=== PATIENT | male | born 1960 | race Caucasian/White ===

== ENCOUNTER 2020-04-28 13:29 | Outpatient (REF) | payer MEDICAID, SELFPAY | END 2020-04-28 13:30 | disposition home or self-care (01) | LOC: HO.HAP 13:29 | PROVIDERS: Visit Provider Pediatrics Adolescent Medicine | DX: Z46.1 Encounter for fitting and adjustment of hearing aid (principal) | CPT/HCPCS: V5266 ==

== ENCOUNTER 2020-07-28 15:34 | Outpatient (REF) | payer MEDICAID, SELFPAY | END 2020-07-28 15:35 | disposition home or self-care (01) | LOC: HO.HAP 15:34 | PROVIDERS: Visit Provider Nurse Practitioner Family | DX: Z46.1 Encounter for fitting and adjustment of hearing aid (principal) | CPT/HCPCS: V5266 ==

== ENCOUNTER 2020-10-21 11:00 | Outpatient (REF) | payer MEDICAID, SELFPAY | END 2020-10-21 11:01 | disposition home or self-care (01) | LOC: HO.HAP 11:00 | PROVIDERS: Visit Provider Nurse Practitioner Family | DX: Z46.1 Encounter for fitting and adjustment of hearing aid (principal); H90.3 Sensorineural hearing loss, bilateral | CPT/HCPCS: V5266 ==

== ENCOUNTER 2021-02-08 13:55 | Outpatient (REF) | payer MEDICAID, SELFPAY ==
--- NOTE | 2021-02-08 16:07 | MHC.AU.AHA ---
Adult Audiological Evaluation Date of Visit: 02/08/21 Reason for Appointment: Audiological evaluation to monitor the status of Mr. Garcia's hearing loss. He has a know bilateral sensorineural hearing loss and uses hearing aids binaurally. He notes that his last hearing evaluation was at [facility] ([facility] in [place] in 2019, and at that time he was told the hearing and speech understanding in his right ear has decreased. He has a history of chronic middle-ear fluid and currently has a PE tube in the right ear. Mr. Garcia notes that he doesn't hear well from the right ear even with his hearing aid. He is interested in pursuing new hearing aids. Mr. Garcia denies any changes to his medical history since his last visit. Previous Hearing Test Results: Reports that he has an audiological evaluation at [facility] in 2019, but did not have records with him today. [facility], 06/14/2018 - Moderately severe to severe sensorineural hearing loss bilaterally. Ear History: Previous Ear Surgery: Myringotomy and PE tube in right ear 2017 & 2019 Bothersome Tinnitus/Ringing/Noises in Ears: Both Ears Medical History: Medical History: Diabetes, Heart Problems, High Blood Pressure Medication List: Magnesium 400 mg, Melatonin 3 mg PRN, NovoLOG flex Pen 100 unit/mL 4-7 units 3x daily, Lantus SoloStar 100 unit solution 11 units daily, Vitamin E, Vitamin D, Metoprolol tartrate 50 mg twice daily, Amlodipine besylate 5 mg daily, Atorvastatin calcium 10 mg daily Hearing Instrument History- Right Ear: Cupola Charger Insulation: ReSFoodfly Model: Carlos Q 7 88 High Power EpiEP Serial Number: [id number] Battery Size: 13 Repair Warranty: 04/09/2018 Dispensed By: [employer] Date of Fitting: Per [employer], purchased 03/11/2016 Hearing Instrument History- Left Ear: Cupola Charger Insulation: ReSFoodfly Model: Carlos Q 7 88 High Power EpiEP Serial Number: [id number] Battery Size: 13 Warranty: 04/09/2018 Dispensed By: [employer] Date of Fitting: Per [employer], purchased 03/11/2016 Otoscopy: Right Ear: Clear canal, PE tube visualized, appears to be falling out of TM Left Ear: Unremarkable Tympanometry: Tympanometry performed due to: History of middle ear dysfunction Right Ear: Could Not Obtain Seal Left Ear: Negative Middle Ear Pressure (Type C) Hearing Evaluation: Transducer(s) Used: Insert Earphones, Bone Conduction Method: Conventional Audiometry Stimuli Used: Pure Tones Right Ear: Description of Hearing: Severe to profound hearing loss from 250-8000 Hz, likely mixed in nature, though cannot determine due to output limits of the bone conductor. Left Ear: Description of Hearing: Moderately severe to severe hearing loss from 250-6000 Hz, and a profound loss at 8000 Hz. Speech Recognition Threshold (SRT): Method Used: Monitored Live Voice Stimuli Used: Spondee Words Right Ear: 90 dBHL Left Ear: 70 dBHL Word Discrimination: Method: Recorded Lists Word Lists Used: NU-6 Right Ear: 20% at 100 dBHL Left Ear: 60% at 95 dBHL, 56% at 100 dBHL Comparison: Compared to most recent evaluation: Compared to audiogram from 2019, 10-30+ dBHL decrease in thresholds in the right ear from 125-1500 and 4000 Hz. Significant decreased in speech discrimination scores in the right ear, from a score of 60% at 110 dBHL in 2019, to 20% at 100 dBHL at today's test. Hearing in the left ear is stable. Recommendations: Audiological re-evaluation in one year. Mr. Reilly hearing aids are almost five years old, and they are no longer providing enough benefit given the decrease in hearing over the years. Discussed hearing aid options with Mr. Garcia. Recommend super power BTE hearing aids. Will contact Mr. Arts health insurance to determine eligibility for new hearing aids. Mr. Garcia may also benefit from following up with his ENT physician regarding the status of the PE tube in his right ear. Diagnosis: Primary Diagnosis: H90.3 Bilateral Sensorineural Hearing Loss Services Performed: Comprehensive Audiological Evaluation (CPT 72218) Tympanometry (CPT 64411) Signature: Provider: Uriel Crespo, [facility]
--- NOTE | 2021-02-08 16:08 | MHC.AU.HAS ---
Hearing Aid Evaluation Date of Visit: 02/08/21 Historical Information: Description of Hearing: Right ear- Severe to profound mixed hearing loss. Left ear- Moderately severe to severe sensorineural hearing loss. Current personal amplification information, if applicable: 2016 Oticon Nera 2 Pro PP 12 105 Summary: Mr. Garcia feels he is not getting adequate benefit from his current hearing aids. They are nearly 5 years old and Mr. Garcia would likely benefit from updated technology with a more powerful pair of hearing aids. Discussed options. He was unhappy with his most recent set of Oticon hearing aids, and has felt like his 2012 pair worked better. Recommended that we try changing to a different paper sorter and counter. He is interested in trying the GN ReSound Carlos Q 7 88 High Power BTE. Hearing Aid Prescription: Based on the individual?s shared listening needs, communication environments, dexterity, desire for connectivity, and personal preferences, the following prescription for amplification has been made: Right ear: Jewelry Maker: ReSound Model: Carlos Q 7 88 High Power BTE Battery Size: 13 Color: Light Blonde Type of Mold: Microsonic earmolds Left ear: Left ear prescription to be same as Right Hearing Aid above: Jewelry Maker: ReSound Model: Carlos Q 7 88 High Power BTE Battery Size: 13 Color: Light Blonde Type of Mold: Microsonic earmolds Plan of Care: Earmold Impressions Taken. Medical Clearance to be requested from PCP/ENT. Contacting his insurance to find out if he is eligible for new aids. Primary Diagnosis: H90.3 Bilateral Sensorineural Hearing Loss Signature: Provider: Uriel Crespo, CCC-A
--- NOTE | 2021-02-08 16:12 | MHC.AU.MED ---
Medical Clearance for Hearing Instrumentation Date: 02/08/21 Patient Name: Juan Garcia Date of : 1960 Primary Care Provider: Referring Provider: Karolina Rivas NP We have seen your patient on 02/08/21 and have determined that they are a candidate for amplification (See accompanying report). Specifically, they would benefit from: Hearing aid use in both ears There is a statute that addresses Medical Evaluation Requirements prior to fitting a patient with a hearing aid. According to [place] statute 265 CMR:6.03(1), (a) General. Except as provided in 265 CMR 6.03(1)(b), a study abroad coordinator shall not sell a hearing aid unless the prospective user has presented to the study abroad coordinator a written statement signed by a licensed physician that states that the patient's hearing loss has been medically evaluated and the patient may be considered a candidate for a hearing aid. The medical evaluation must have taken place within the preceding six months. Please note: Due to the [place] Statute referenced above, we cannot accept a signature other than that of a licensed physician. REAL ESTATE INSPECTOR and PA signatures cannot be accepted. I am in agreement with the above recommendation. There is no medical contraindication for hearing instrumentation. Physician Signature Date Physician Name (Printed)
--- NOTE | 2021-02-08 16:16 | MHC.AU.AHA ---
Adult Audiological Evaluation Date of Visit: 02/08/21 Reason for Appointment: Audiological evaluation to monitor the status of Mr. Garcia's hearing loss. He has a know bilateral sensorineural hearing loss and uses hearing aids binaurally. He notes that his last hearing evaluation was at [facility] ([facility] in [place] in 2019, and at that time he was told the hearing and speech understanding in his right ear has decreased. He has a history of chronic middle-ear fluid and currently has a PE tube in the right ear. Mr. Garcia notes that he doesn't hear well from the right ear even with his hearing aid. He is interested in pursuing new hearing aids. Mr. Garcia denies any changes to his medical history since his last visit. Previous Hearing Test Results: Reports that he has an audiological evaluation at [facility] in 2019, but did not have records with him today. [facility] 06[place]2018 - Moderately severe to severe sensorineural hearing loss bilaterally. Ear History: Previous Ear Surgery: Myringotomy and PE tube in right ear 2017 & 2019 Bothersome Tinnitus/Ringing/Noises in Ears: Both Ears Medical History: Medical History: Diabetes, Heart Problems, High Blood Pressure Medication List: Magnesium 400 mg, Melatonin 3 mg PRN, NovoLOG flex Pen 100 unit/mL 4-7 units 3x daily, Lantus SoloStar 100 unit solution 11 units daily, Vitamin E, Vitamin D, Metoprolol tartrate 50 mg twice daily, Amlodipine besylate 5 mg daily, Atorvastatin calcium 10 mg daily Hearing Instrument History- Right Ear: Honey Extractor: Ot[employer]ex[employer] Model: Nera 2 Pro PP 13 105 Serial Number: [id number] Battery Size: 13 Repair Warranty: 04/09/2018 Dispensed By: [employer] Date of Fitting: Per [employer] 03/10/2016 Hearing Instrument History- Left Ear: Honey Extractor: OtNexamp Model: Nera 2 Pro PP 13 105 Serial Number: [id number] Battery Size: 13 Warranty: 04/09/2018 Dispensed By: [employer] Date of Fitting: Per [employer] 03/10/2016 Otoscopy: Right Ear: Clear canal, PE tube visualized, appears to be falling out of TM Left Ear: Unremarkable Tympanometry: Tympanometry performed due to: History of middle ear dysfunction Right Ear: Could Not Obtain Seal Left Ear: Negative Middle Ear Pressure (Type C) Hearing Evaluation: Transducer(s) Used: Insert Earphones, Bone Conduction Method: Conventional Audiometry Stimuli Used: Pure Tones Right Ear: Description of Hearing: Severe to profound hearing loss from 250-8000 Hz, likely mixed in nature, though cannot determine due to output limits of the bone conductor. Left Ear: Description of Hearing: Moderately severe to severe hearing loss from 250-6000 Hz, and a profound loss at 8000 Hz. Speech Recognition Threshold (SRT): Method Used: Monitored Live Voice Stimuli Used: Spondee Words Right Ear: 90 dBHL Left Ear: 70 dBHL Word Discrimination: Method: Recorded Lists Word Lists Used: NU-6 Right Ear: 20% at 100 dBHL Left Ear: 60% at 95 dBHL, 56% at 100 dBHL Comparison: Compared to most recent evaluation: Compared to audiogram from 2019, 10-30+ dBHL decrease in thresholds in the right ear from 125-1500 and 4000 Hz. Significant decreased in speech discrimination scores in the right ear, from a score of 60% at 110 dBHL in 2019, to 20% at 100 dBHL at today's test. Hearing in the left ear is stable. Recommendations: Audiological re-evaluation in one year. Mr. Reilly hearing aids are almost five years old, and they are no longer providing enough benefit given the decrease in hearing over the years. Discussed hearing aid options with Mr. Garcia. Recommend super power BTE hearing aids. Will contact Mr. Arts health insurance to determine eligibility for new hearing aids. Mr. Garcia may also benefit from following up with his ENT physician regarding the status of the PE tube in his right ear. Diagnosis: Primary Diagnosis: H90.3 Bilateral Sensorineural Hearing Loss Services Performed: Comprehensive Audiological Evaluation (CPT 96652) Tympanometry (CPT 92465) Signature: Provider: Uriel Crespo, [facility]
== END 2021-02-08 13:56 | disposition home or self-care (01) ==
LOC: HO.SH 13:55
PROVIDERS: Visit Provider Nurse Practitioner Family
DX: H90.3 Sensorineural hearing loss, bilateral (principal)
CPT/HCPCS: 92557; 92567; 92591; 92593; V5266; V5275

== ENCOUNTER 2021-03-24 14:27 | Outpatient (REF) | payer MEDICAID, SELFPAY | END 2021-03-24 14:28 | disposition home or self-care (01) | LOC: HO.HAP 14:27 | PROVIDERS: Visit Provider Internal Medicine | DX: Z46.1 Encounter for fitting and adjustment of hearing aid (principal); H90.3 Sensorineural hearing loss, bilateral | CPT/HCPCS: V5011; V5020; V5160; V5261; V5264; V5266 ==

== ENCOUNTER 2021-04-21 14:01 | Outpatient (REF) | payer MEDICAID, SELFPAY | END 2021-04-21 14:02 | disposition home or self-care (01) | LOC: HO.HAP 14:01 | PROVIDERS: Visit Provider Pediatrics Adolescent Medicine | DX: Z13.89 Encounter for screening for other disorder (principal) ==

== ENCOUNTER 2021-05-17 09:17 | Outpatient (REF) | payer MEDICAID, SELFPAY ==
--- NOTE | 2021-05-19 11:18 | MHC.AU.HFU ---
Hearing Instrument Follow-Up- Binaural Date of Visit: 05/17/21 Right Ear: Resident Care Director: ReSound Model: Carlos Q 7 HP BTE Serial Number: [id number] Repair Warranty: 04/01/2024 Loss and Damage Warranty: 04/01/2024 Battery Size: 13 Color: Light Blonde TubinT double bend Type of Mold: Half shell Microsonic earmold Dispensed By: [facility] Date of Fittin03/24/2021 Left Ear: Resident Care Director: ReSound Model: Carlos Q 7 HP BTE Serial Number: [id number] Repair Warranty: 04/01/2024 Loss and Damage Warranty: 04/01/2024 Battery Size: 13 Color: Light Blonde TubinT double bend Type of Mold: Half shell Microsonic earmold Dispensed By: [facility] Date of Fittin03/24/2021 Follow-Up Summary: Patient reports that the tone hooks are very loose. They have fallen off the hearing aids a few times while wearing them. He reports the sound of the hearing aids has been excellent, but he is afraid to wear the hearing aids in case they fall off again. Hearing aids were inspected. The metal hooks are very loose and cannot be manually tightened. Contacted audiology at [facility]- they will send alternative hooks, made of plastic. Patient also reports that the left mold is causing discomfort. A new impression was taken and will be sent to [employer] for remake. Recommendations: Recommendations: Patient will be contacted when the new hooks have arrived, and when the mold has arrived (as the mold will likely take longer to come in than the hooks). Diagnosis Code(s): Primary Diagnosis: H90.3 Bilateral Sensorineural Hearing Loss Signature: Provider: Uriel Lacy, CCC-A
--- NOTE | 2021-05-19 11:29 | MHC.AU.HFU ---
Hearing Instrument Follow-Up- Binaural Date of Visit: 05/17/21 Right Ear: High School Band Teacher: ReSound Model: Carlos Q 7 HP BTE Serial Number: [id number] Repair Warranty: 04/01/2024 Loss and Damage Warranty: 04/01/2024 Left Ear: High School Band Teacher: ReSound Model: Carlos Q 7 HP BTE Serial Number: [id number] Repair Warranty: 04/01/2024 Loss and Damage Warranty: 04/01/2024 Follow-Up Summary: Patient reports that the tone hooks are very loose. They have fallen off the hearing aids a few times while wearing them. He reports the sound of the hearing aids has been excellent, but he is afraid to wear the hearing aids in case they fall off again. Hearing aids were inspected. The metal hooks are very loose and cannot be manually tightened. Contacted audiology at [facility]- they will send alternative hooks, made of plastic. The hearing aids/molds will be kept in our office until the hooks arrive so we can make sure the hooks fit before giving them back to the patient. Patient has been using his old instruments/molds in the meantime. Patient also reports that the left mold is causing discomfort. A new impression was taken and will be sent to [employer] for remake. Recommendations: Recommendations: Patient will be contacted when the new hooks have arrived, and when the mold has arrived (as the mold will likely take longer to come in than the hooks). Diagnosis Code(s): Primary Diagnosis: H90.3 Bilateral Sensorineural Hearing Loss Signature: Provider: Uriel Lacy, [facility]
== END 2021-05-17 09:18 | disposition home or self-care (01) ==
LOC: HO.HAP 09:17
PROVIDERS: Visit Provider Nurse Practitioner Family
DX: Z46.1 Encounter for fitting and adjustment of hearing aid (principal); H90.3 Sensorineural hearing loss, bilateral
CPT/HCPCS: V5275

== ENCOUNTER 2021-05-21 11:11 | Outpatient (REF) | payer SELFPAY | END 2021-05-21 11:12 | disposition home or self-care (01) | LOC: HO.HAP 11:11 | PROVIDERS: PCP Nurse Practitioner Family; Visit Provider Nurse Practitioner Family | DX: Z13.89 Encounter for screening for other disorder (principal) ==

== ENCOUNTER 2021-07-30 12:41 | Outpatient (REF) | payer MEDICAID, SELFPAY ==
--- NOTE | 2021-07-30 14:20 | MHC.AU.HFU ---
Hearing Instrument Follow-Up- Binaural Date of Visit: 07/30/21 Right Ear: Strategic Marketing Leader: ReSound Model: Carlos Q 7 HP BTE Serial Number: [id number] Repair Warranty: 04/01/2024 Left Ear: Strategic Marketing Leader: ReSound Model: Carlos Q 7 HP BTE Serial Number: [id number] Repair Warranty: 04/01/2024 Follow-Up Summary: Juan was seen for an earmold product picker and hearing aid maintenance appointment. Juan was accompanied by his brother, Finn Garcia, at today's appointment. Juan sustained a cardiac event and an anoxic brain injury in early June. He is currently receiving rehabilitation services. Juan reports the left device seems quieter than before. Biologic listening check revealed the left device was weak. Replaced tubes and cleaned microphones bilaterally. Right device was in good working order. Left device still appeared to be weak. Discussed sending left hearing aid to fixing machine operator for repair, which patient agreed to. A Resound Carlos Q 9 loaner device (SN:[id number]) was programmed with Juan's most recent settings. Juan's new left earmold was fit to the loaner device. Patient stated the hearing aids sounded good. An instrument loan agreement was signed. Recommendations: Juan will be contacted once repaired hearing device arrives. Juan's brother requested we call him at [phone] if Juan could not be reached. Patient should call if any issues arise before then. Diagnosis Code(s): Primary Diagnosis: H90.3 Bilateral Sensorineural Hearing Loss Signature: Student/Clinical Fellow: Yes: Brittney Burrell B.A., Uriel Digital Marketing Specialist I have reviewed/agreed with student/fellow documentation: Yes Provider: Uriel Lacy, [facility]
== END 2021-07-30 12:42 | disposition home or self-care (01) ==
LOC: HO.HAP 12:41
PROVIDERS: Visit Provider Nurse Practitioner Family
DX: Z13.89 Encounter for screening for other disorder (principal)

== ENCOUNTER 2021-08-11 11:13 | Outpatient (REF) | payer MEDICAID, SELFPAY | END 2021-08-11 11:14 | disposition home or self-care (01) | LOC: HO.HAP 11:13 | PROVIDERS: Visit Provider Nurse Practitioner Family | DX: Z13.89 Encounter for screening for other disorder (principal) ==

== ENCOUNTER 2022-02-28 13:58 | Outpatient (REF) | payer MEDICAID, SELFPAY ==
--- NOTE | 2022-02-28 15:25 | MHC.AU.HFU ---
Hearing Instrument Follow-Up- Binaural Date of Visit: 02/28/22 Right Ear: ReSound Carlos Q7 ([id number]) SN: [id number] Color: Lt Blonde Repair Warranty: 04/01/2024 Loss and Damage Warranty: 04/01/2024 Battery Size: 13 Type of Mold: Microsonic M2000 half shell Dispensed By: [facility] Date of Fittin03/24/2021 Left Ear: ReSound Carlos Q7 ([id number]) SN: [id number] Color: Lt Blonde Repair Warranty: 04/01/2024 Loss and Damage Warranty: 04/01/2024 Battery Size: 13 Type of Mold: Microsonic M2000 half shell Type of Wax Guard: Dispensed By: [facility] Date of Fittin03/24/2021 Follow-Up Summary: Juan reported his right hearing aid is intermittent. Tubing was extremely hard with wax build up inside. Cleaned hearing aids and earmolds. Vacuumed microphones and replaced tubing. Replaced the right tone hook as it was slightly cracked. A listening check demonstrated that the hearing aids are in good working order. Juan noticed improvement in sound quality in office. Recommendations: Follow-up with primary care physician for wax removal of the left ear. Tubing change every six months. Diagnosis Code(s): Primary Diagnosis: H90.6 Mixed Hearing Loss, Bilateral Signature: Provider: Carol Muniz, [facility]
== END 2022-02-28 13:59 | disposition home or self-care (01) ==
LOC: HO.HAP 13:58
PROVIDERS: Visit Provider Nurse Practitioner Family
DX: Z13.89 Encounter for screening for other disorder (principal)

== ENCOUNTER 2022-04-26 14:14 | Outpatient (REF) | payer MEDICAID, SELFPAY | END 2022-04-26 14:15 | disposition home or self-care (01) | LOC: HO.SH 14:14 | PROVIDERS: Visit Provider Nurse Practitioner Family | DX: Z01.118 Encounter for examination of ears and hearing with other abnormal findings (principal); H90.3 Sensorineural hearing loss, bilateral; H61.23 Impacted cerumen, bilateral | CPT/HCPCS: 92593; 99499 ==

== ENCOUNTER 2022-05-13 07:56 | Outpatient (REF) | payer MEDICAID, SELFPAY | END 2022-05-13 07:57 | disposition home or self-care (01) | LOC: HO.SH 07:56 | PROVIDERS: Visit Provider Nurse Practitioner Family | DX: Z01.118 Encounter for examination of ears and hearing with other abnormal findings (principal); Z46.1 Encounter for fitting and adjustment of hearing aid; H90.6 Mixed conductive and sensorineural hearing loss, bilateral; H69.91 Unspecified Eustachian tube disorder, right ear | CPT/HCPCS: 92557; 92567; 92593; 99499; V5266 ==

== ENCOUNTER 2022-09-07 11:55 | Outpatient (REF) | payer MEDICAID, SELFPAY | END 2022-09-07 11:56 | disposition home or self-care (01) | LOC: HO.HAP 11:55 | PROVIDERS: Visit Provider Nurse Practitioner Family | DX: Z46.1 Encounter for fitting and adjustment of hearing aid (principal); H90.3 Sensorineural hearing loss, bilateral | CPT/HCPCS: V5266 ==

== ENCOUNTER 2022-12-12 13:58 | Outpatient (REF) | payer MEDICAID, SELFPAY | END 2022-12-12 13:59 | disposition home or self-care (01) | LOC: HO.HAP 13:58 | PROVIDERS: Visit Provider Nurse Practitioner Family | DX: Z46.1 Encounter for fitting and adjustment of hearing aid (principal); H90.6 Mixed conductive and sensorineural hearing loss, bilateral | CPT/HCPCS: V5266 ==

== ENCOUNTER 2023-01-03 12:11 | Outpatient (REF) | payer MEDICAID, SELFPAY | END 2023-01-03 12:12 | disposition home or self-care (01) | LOC: HO.HAP 12:11 | PROVIDERS: Visit Provider Nurse Practitioner Family | DX: Z46.1 Encounter for fitting and adjustment of hearing aid (principal); H90.3 Sensorineural hearing loss, bilateral | CPT/HCPCS: 92592 ==

== ENCOUNTER 2023-01-04 16:16 | Outpatient (REF) | payer MEDICAID, SELFPAY | END 2023-01-04 16:17 | disposition home or self-care (01) | LOC: HO.HAP 16:16 | PROVIDERS: Visit Provider Nurse Practitioner Family | DX: Z13.89 Encounter for screening for other disorder (principal) ==

== ENCOUNTER 2023-03-06 14:11 | Outpatient (REF) | payer MEDICAID, SELFPAY | END 2023-03-06 14:12 | disposition home or self-care (01) | LOC: HO.HAP 14:11 | PROVIDERS: Visit Provider Nurse Practitioner Family | DX: Z46.1 Encounter for fitting and adjustment of hearing aid (principal); H90.3 Sensorineural hearing loss, bilateral; H69.91 Unspecified Eustachian tube disorder, right ear | CPT/HCPCS: V5266 ==

== ENCOUNTER 2023-04-27 12:55 | Outpatient (REF) | payer MEDICAID, SELFPAY | END 2023-04-27 12:56 | disposition home or self-care (01) | LOC: HO.HAP 12:55 | PROVIDERS: Visit Provider Nurse Practitioner Family | DX: Z13.89 Encounter for screening for other disorder (principal) ==

== ENCOUNTER 2023-05-01 11:57 | Outpatient (REF) | payer MEDICAID, SELFPAY | END 2023-05-01 11:58 | disposition home or self-care (01) | LOC: HO.HAP 11:57 | PROVIDERS: Visit Provider Nurse Practitioner Family | DX: Z13.89 Encounter for screening for other disorder (principal) ==

== ENCOUNTER 2023-08-17 13:56 | Outpatient (REF) | payer MEDICAID, SELFPAY | END 2023-08-17 13:57 | disposition home or self-care (01) | LOC: HO.HAP 13:56 | PROVIDERS: Visit Provider Nurse Practitioner Family | DX: Z46.1 Encounter for fitting and adjustment of hearing aid (principal); H90.3 Sensorineural hearing loss, bilateral | CPT/HCPCS: V5266 ==

== ENCOUNTER 2024-01-03 12:07 | Outpatient (REF) | payer MEDICAID, SELFPAY | END 2024-01-03 12:08 | disposition home or self-care (01) | LOC: HO.HAP 12:07 | PROVIDERS: Visit Provider Nurse Practitioner Family | DX: Z46.1 Encounter for fitting and adjustment of hearing aid (principal); H90.3 Sensorineural hearing loss, bilateral; H69.91 Unspecified Eustachian tube disorder, right ear | CPT/HCPCS: V5266 ==

== ENCOUNTER 2024-04-26 12:07 | Outpatient (REF) | payer MEDICAID, SELFPAY ==
--- OUTSIDE RECORDS SUMMARY | 2024-04-26 14:12 | XMS_ITS | Encounter Summary ---
Author Organization [employer] Address [address] [place] [address] Care Team Providers Care Sodium Chlorite Operator Name Role Phone Karolina Rivas PIO Primary Care Provider [phone] Encounter Details Date Type Department Care Team (Late st Contact Info) Description 03/05/[address] [facility] MEDICAL [address] [place] [address] Provider, MD Jesika Social History Tobacco Use Types Packs/Day Years Used Date Smoking Tobacco: Never Smokeless Tobacco: Never Alcohol Use Standard Drinks/Week Comments Never 0 (1 standard drink = 0.6 oz pur e alcohol) occ Housing Stability Answer Date Recorded What is your housing situation today? I have ron cline 01/22/[address] you li ve. Do you have problems with any of the following? None of the above 01/22/2023 Food Insecurity Answer Date Recorded Within the past 12 months, y ou worried that your food would run out before you got money to buy more: Never True 01/22/2023 Within the past 12 months,th e food you bought just didn't last and you didn't have enough money to get more: Never True Transportation Answer Date Recorded In the past 12 months, has l ack of transportation kept you from medical appts, meetings, work or from getting things needed for daily living? No 01/22/2023 Utilities Answer Date Recorded In the past 12 months, has t he electric, gas, oil or water company threatened to shut off services in your home? No 01/22/2023 Depression Answer Date Recorded Patient Health Questionnaire-2 Score 0 07/14/2022 Education Answer Date Recorded What is the highest level of school you have completed or the highest degree you have received? Bachelor's degree (e.g., BA, AB, BS) 07/14/2022 Sex and Gender Information Value Date Recorded Sex Assigned at Male 07/14/2022 2:40 PM EDT Legal Sex Male 8:34 PM EDT Gender Identity Male 07/14/2022 2:40 PM EDT Sexual Orientation Choose not to disclose 2022 10:21 AM EST documented as of this encounter Plan of Treatment Not on file documented as of this encounter Procedures Procedure Name Priority Date/Time Associated Diagnosis Comments HEPATIC FUNCTION PANEL Routine 01/18/2023 BASIC METABOLIC PANEL Routine 01/18/2023 documented in this encounter Results * Hepatic Function Panel (01/18/2023) Blood Venous blood specimen / Unknown us Historical Provider MD LAB BLOOD ORDERABLES Amaris l Result * Basic Metabolic Panel (01/18/2023) Blood Venous blood specimen / Unknown us Historical Provider MD LAB BLOOD ORDERABLES Amaris l Result documented in this encounter Visit Diagnoses Not on filedocumented in this encounter Care Teams Sodium Chlorite Operator Relationship Specialty Start Date End Date Karolina Rivas CNP [address] [place] [address] PCP - General Family Medicine 04/28/22 documented as of this encounter
--- OUTSIDE RECORDS SUMMARY | 2024-04-26 14:12 | XMS_ITS | Clinical Summary ---
Author Organization 175 [facility] Address [address] [place] [address] Phone Care Team Providers Care Crane Operator Name Role Phone Mona Mulligan MD Primary Care Provider [phone] Allergies No known active allergies Medications Medication Sig Dispensed Refills Start Date End Date Status amantadine (SYMMETREL) 100 mg tablet Take by mouth. Active amiodarone (PACERONE) 200 mg tablet Take 1 Tablet by mouth daily. Active eplerenone (INSPRA) 25 mg tablet Take 1 Tablet by mouth daily. Active folic acid (FOLVITE) 1 mg tablet Take 1 Tablet by mouth daily. Active glipiZIDE (GLUCOTROL) 10 mg tablet Take 10 mg by mouth 2 times daily. 10mg am and 5 mg pm Active insulin aspart (NovoLOG) 100 unit/mL injection Inject as directed. Activ e insulin glargine (Lantus Solostar U-100 Insulin) 100 unit/mL (3 mL) injection pen Inject into the skin. Active insulin NPH-insulin regular (NovoLIN 70/30 U-100 Insulin) 100 unit/mL (70-30) injection Inject 15 Ampules into the skin 2 times daily. 10 ux am and 5 ux pm Active ketoconazole (NIZORAL) 2 % cream apply cream to the affected areas of the bottom and top of feet twice daily 09/05/2023 Active metFORMIN (GLUCOPHAGE) 1,000 mg tablet Take 1,000 mg by mouth 2 times daily (with meals). Active rivaroxaban (XARELTO) 20 mg tablet Take by mouth. Active sacubitriL-valsartan (Entresto) 97-103 mg per tablet Take by mouth. Active Encounters Date Type Department Care Team Description 04/17/2024 1:30 PM EST Office Visit Vascular Surgery - [place] [address] [place] [address] Kelley Gunderson MD Pain of lower extremity, unspecified laterality (Primary Dx) from Last 3 Months Immunizations Name Administration Dates Next Due Moderna SARS-CoV-2 COVID-19, mRNA, LNP-S, preservative free 01/25/2021,07/19/2020,06/20/2020 Social History Tobacco Use Types Packs/Day Years Used Date Smoking Tobacco: Never Alcohol Use Standard Drinks/Week Comments Not Asked 0 (1 standard drink = 0.6 oz pur e alcohol) Sex and Gender Information Value Date Recorded Sex Assigned at Not on file Gender Identity Not on file Sexual Orientation Not on file Job Start Date Occupation Industry Not on file Not on file Not on file Obstetrics History Last Filed Vital Signs Vital Sign Reading Time Taken Comments Blood Pressure 110/70 04/17/2024 1:47 PM EST Pulse 60 04/17/2024 1:47 PM EST Temperature - - Respiratory Rate 16 04/17/2024 1:47 PM EST Oxygen Saturation - - Inhaled Oxygen Concentration - - Weight 56.7 kg (125 lb) 04/17/2024 1:47 PM EST Height 170.2 cm (5' 7 ) 04/17/2024 1:47 PM EST Body Mass Index 19.58 04/17/2024 1:47 PM EST Plan of Treatment Upcoming Encounters Date Type Department Care Team (Late st Contact Info) Description 05/29/2024 3:00 PM EST Office Visit Orthopedic Surgery [facility] [address] [facility] [address] [place] [id number] Adebayo Chatterjee DPM 175 [facility] [address] [place] [address] Health Maintenance Due Date Last Done Comments Diabetes: Annual Foot Exam 1971 Diabetes: Annual Retina Eye Exam 1971 Pneumococcal Vaccine: Pediatrics (0 to 5 Years) and At-Risk Patients (6 to 64 Years) (2 of 2 - PCV) 09/16/2010 09/16/2009 Zoster Vaccines (1 of 2) 2011 Colorectal Cancer Screening: Colonoscopy 03/01/2022 Depression Screening 03/01/2022 Hepatitis C Screening 03/01/2022 Social Influencers of Health Screening 03/01/2022 Diabetes: Annual Urine Albumin-Creatinine Ratio (uACR) 04/16/2024 04/21/2021 Diabetes: Blood Sugar Control Test (HGBA1C) 05/22/2024 11/20/2023, 05/10/2023, 02/15/2023 Diabetes: Annual GFR (Glomerular Filtration Rate) 06/01/2024 06/02/2023 Hypertension/CHF/CAD Annual BMP Blood Test 06/01/2024 06/02/2023 Cholesterol Screening (Lipid Panel) 07/16/2027 07/15/2022, 07/15/2022 DTaP,Tdap,and Td Vaccines (4 - Td or Tdap) 04/13/2031 04/13/2021, 09/23/2011, 05/18/2004 HIV Screening Completed 08/28/2015 Hepatitis B Vaccines Completed 10/28/2019, 06/03/2019, 05/01/2019 RSV Immunization Patients 60+ Years Old Completed 03/15/2023 COVID-19 Vaccine Completed 12/28/2023, , 02/02/2022, Additional history exists Influenza Vaccine Completed 12/28/2023, , 01/12/2022, Additional history exists HIB Vaccines Aged Out No longer eligi ble based on patient's age to complete this topic HPV Vaccines Aged Out No longer eligi ble based on patient's age to complete this topic Hepatitis A Vaccines Aged Out No long er eligible based on patient's age to complete this topic IPV Vaccines Aged Out No longer eligi ble based on patient's age to complete this topic MMR Vaccines Aged Out No longer eligi ble based on patient's age to complete this topic Meningococcal ACWY Vaccine Aged Out N o longer eligible based on patient's age to complete this topic RSV Immunization Patients Under 20 months Aged Out No longer eligible based on patient's age to complete this topic Varicella Vaccines Aged Out No longer eligible based on patient's age to complete this topic Procedures Procedure Name Priority Date/Time Associated Diagnosis Comments ANNUAL BMP BLOOD TEST Routine 06/02/2023 HEMOGLOBIN A1C Routine 05/10/2023 LIPID PANEL Routine 07/15/2022 URINE ALBUMIN CREATININE RATIO Routine 04/21/2021 from Last 3 Months or Most Recently Relevant to Health Maintenance Results * Annual BMP Blood Test (06/02/2023) Annual BMP Blood Test abstracted Historical Provider MD YANES MAINTENANC E * Hemoglobin A1c (05/10/2023) Hemoglobin A1C 0.0 % Comment:no interpretation Blood Venous blood specimen / Unknown Historical Provider LAB BLOOD ORDERAB LES * Lipid panel (07/15/2022) Triglycerides 0 mg/dL Comment:no interpretation Cholesterol 0 mg/dL Comment:no interpretation HDL 0 mg/dL Comment:no interpretation LDL Cholesterol 0 mg/dL Comment:no interpretation Blood Venous blood specimen / Unknown Historical Provider LAB BLOOD ORDERAB LES * Urine Albumin Creatinine Ratio (04/21/2021) Urine Albumin Creatinine Ratio abstracted Historical Provider [employer] MAINTENANC E from Last 3 Months or Most Recently Relevant to Health Maintenance Advance Directives Documents on File Type Date Recorded Patient Exceptional Children Teacher Assistant Expl anation Health Care Decision (hx) 07/14/2021 AD ODOM DIRECTIVE Health Care Decision (hx) 07/14/2021 AD ODOM DIRECTIVE Health Care Decision (hx) 07/14/2021 AD ODOM DIRECTIVE Health Care Decision (hx) 07/14/2021 AD ODOM DIRECTIVE Care Teams Crane Operator Relationship Specialty Start Date End Date Mona Mulligan MD [address] [place] [id number] PCP - General Internal Medicine 07/27/21
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
--- OUTSIDE RECORDS SUMMARY | 2024-04-26 14:12 | XMS_ITS | Encounter Summary ---
Author Organization [employer] Address [address] [place] [address] Care Team Providers Care Heavy Threader Name Role Phone Karolina Riavs CNP Primary Care Provider [phone] Selwyn Noble OBJECTIVE C DEVELOPER Unavailable Unavail able Cate Copeland RN Unavailable Unavailable Encounter Details Date Type Department Care Team (Latest Contact Info) Description 05/14/2018 Abstract [facility] CONVERSION[facility] Dental, Provider, DDS Social History Tobacco Use Types Packs/Day Years Used Date Smoking Tobacco: Never Assessed Sex and Gender Information Value Date Recorded Sex Assigned at Male 07/14/2022 2:40 PM EDT Legal Sex Male 8:34 PM EDT Gender Identity Male 07/14/2022 2:40 PM EDT Sexual Orientation Choose not to disclose 2022 10:21 AM EST documented as of this encounter Plan of Treatment Not on file documented as of this encounter Visit Diagnoses Not on filedocumented in this encounter Care Teams Heavy Threader Relationship Specialty Start Date End Date Karolina Rivas CNP [address] [place] [address] PCP - General Family Medicine 04/28/22 Selwyn Noble, OBJECTIVE C DEVELOPER Community Health Worker Case Management 09/16/22 10/26/22 Cate Copeland, RN Registered Nurse Case Management 09/23/22 11/25/22 documented as of this encounter
--- OUTSIDE RECORDS SUMMARY | 2024-04-26 14:13 | XMS_ITS | Encounter Summary ---
Author Organization [employer] Address [address] [place] [address] Care Team Providers Care Fit Model Name Role Phone Karolina Rivas CNP Primary Care Provider [phone] Selwyn Noble HANDS AND DIAL INSPECTOR Unavailable Unavail able Cate Copeland RN Unavailable Unavailable Encounter Details Date Type Department Care Team (Latest Contact Info) Description 01/22/2020 Abstract [facility]VERSION[facility] Dental, Provider, DDS Social [...] on filedocumented in this encounter Care Teams Fit Model Relationship Specialty Start Date End Date Karolina Rivas CNP [address] [place] [address] PCP - General Family Medicine 04/28/22 Selwyn Noble, HANDS AND DIAL INSPECTOR Community Health Worker Case Management 09/16/22 10/26/22 Cate Copeland, RN Registered Nurse Case Management 09/23/22 11/25/22 documented as of this encounter
--- OUTSIDE RECORDS SUMMARY | 2024-04-26 14:13 | XMS_ITS | Encounter Summary ---
Author Organization [employer] Address [address] [facility] [address] [place] [address] Care Team Providers Care Cell Lead Name Role Phone Karolina Rivas CNP Primary Care Provider [phone] Selwyn Noble Unavailable Unavail able Cate Copeland RN Unavailable Unavailable Encounter Details Date Type Department Care Team (Late st Contact Info) Description 04/28/2022 Abstract [facility] [address] [place] [address] Karolina Rivas CNP [address] [place] [address] Social History Tobacco Use Types Packs/Day Years [...] Procedure Name Priority Date/Time Associated Diagnosis Comments HEMOGLOBIN A1C Routine 10/12/2021 LIPID PANEL, STANDARD Routine 04/21/2021 HIV-1 ANTIBODY, EIA Routine 08/28/2015 HM COLONOSCOPY Routine 01/02/2012 documented in this encounter Results * (ABNORMAL) Hemoglobin A1c (10/12/2021) Pathologist [facility] Hemoglobin A1C 8.4(A) 4.0 - 6.0 % Blood Venous blood specimen / Unknown [facility] Provider LAB BLOOD ORDERABLES Amaris l Result * Lipid Panel, Standard (04/21/2021) [facility] Triglycerides 73 40 - 160 mg/dL Cholesterol 120 0 - 200 mg/dL HDL Cholesterol 50 35 - 70 mg/dL LDL Cholesterol 55 mg/dL Blood Venous blood specimen / Unknown [facility] Provider LAB BLOOD ORDERABLES Amaris l Result * HIV-1 antibody, EIA (08/28/2015) [facility] External HIV-1 Antibody Negative Blood Venous blood specimen / Unknown Result [facility] Provider LAB BLOOD ORDERABLES Amaris l Result * Colonoscopy (01/02/2012) [facility] Colonoscopy No polyps noted but prep was poor. Negative exam. Repeat exam in 10 yrs. unless clinically indicated before that time. [facility] Provider HEALTH MAINTENANCE Final Result documented in this encounter Visit Diagnoses Not on filedocumented in this encounter Care Teams Cell Lead Relationship Specialty Start Date End Date Karolina Rivas CNP [address] [place] [address] PCP - General Family Medicine 04/28/22 Selwyn Noble LICSW Community Health Worker Case Management 09/16/22 10/26/22 Cate Copeland, RN Registered Nurse Case Management 09/23/22 11/25/22 documented as of this encounter
--- OUTSIDE RECORDS SUMMARY | 2024-04-26 14:13 | XMS_ITS | Encounter Summary ---
Author Organization [employer] Address [address] [place] [address] Care Team Providers Care Pepper Cutter Name Role Phone Karolina Rivas CNP Primary Care Provider [phone] Selwyn Noble Unavailable Unavail able Cate Copeland RN Unavailable Unavailable Encounter Details Date Type Department Care Team (Late st Contact Info) Description 05/04/2022 Abstract Laura [facility] [address] [place] [address] Karolina Rivas CNP [address] [place] [address] Social History Tobacco Use Types Packs/Day Years Used Date Smoking Tobacco: Never Smokeless Tobacco: Never Alcohol Use Standard Drinks/Week Comments Never 0 (1 standard drink = 0.6 oz pur e alcohol) occ Sex and Gender Information Value Date Recorded Sex Assigned at Male 07/14/2022 2:40 PM EDT Legal Sex Male 8:34 PM EDT Gender Identity Male 07/14/2022 2:40 PM EDT Sexual Orientation Choose not to disclose 2022 10:21 AM EST COVID-19 Exposure Response Date Recorded In the last 10 days, have yo u been in contact with someone who was confirmed or suspected to have Coronavirus/COVID-19? No / Unsure 05/04/2022 7:57 AM EST documented as of this encounter Plan of Treatment Not on file documented as of this encounter Visit Diagnoses Not on filedocumented in this encounter Care Teams Pepper Cutter Relationship Specialty Start Date End Date Karolina Rivas CNP [address] [place] [address] PCP - General Family Medicine 04/28/22 Selwyn Noble LICSW Community Health Worker Case Management 09/16/22 10/26/22 Cate Copeland, RN Registered Nurse Case Management 09/23/22 11/25/22 documented as of this encounter
--- OUTSIDE RECORDS SUMMARY | 2024-04-26 14:13 | XMS_ITS | Encounter Summary ---
Author Organization [employer] Address [address] [place] [address] Care Team Providers Care Relationship Executive Name Role Phone Karolina Rivas CNP Primary Care Provider [phone] Selwyn Noble COMMUNITY THEATER ACTOR Unavailable Unavail able Cate Copeland RN Unavailable Unavailable Encounter Details Date Type Department Care Team (Latest Contact Info) Description 02/08/2019 Abstract [facility] CONVERSION[facility] Dental, Provider, DDS Social [...] on filedocumented in this encounter Care Teams Relationship Executive Relationship Specialty Start Date End Date Karolina Rivas CNP [address] [place] [address] PCP - General Family Medicine 04/28/22 Selwyn Noble, COMMUNITY THEATER ACTOR Community Health Worker Case Management 09/16/22 10/26/22 Cate Copeland, RN Registered Nurse Case Management 09/23/22 11/25/22 documented as of this encounter
--- OUTSIDE RECORDS SUMMARY | 2024-04-26 14:13 | XMS_ITS | Encounter Summary ---
Author Organization [employer] Address [address] [facility] [address] [place] [address] Care Team Providers Care Electrical Electronics Engineer Name Role Phone Karolina Rivas CNP Primary Care Provider Selwyn Noble Unavailable Unavail able Cate Copeland RN Unavailable Unavailable Encounter Details Date Type Department Care Team (Late st Contact Info) Description 04/28/2022 Abstract Laura [facility] [address] [place] [address] Karolina Rivas CNP [address] [place] [address] Social History Tobacco Use Types Packs/Day Years [...] on filedocumented in this encounter Care Teams Electrical Electronics Engineer Relationship Specialty Start Date End Date Karolina Rivas CNP [address] [place] [address] PCP - General Family Medicine 04/28/22 Selwyn Noble LICSW Community Health Worker Case Management 09/16/22 10/26/22 Cate Copeland, JAYSON Registered Nurse Case Management 09/23/22 11/25/22 documented as of this encounter
--- OUTSIDE RECORDS SUMMARY | 2024-04-26 14:13 | XMS_ITS | Encounter Summary ---
Author Organization [employer] Address [address] [place] [address] Care Team Providers Care Parts Casting Machine Operator Name Role Phone Karolina Rivas CNP Primary Care Provider [phone] Selwyn Noble CABLE TENDER Unavailable Unavail able Cate Copeland RN Unavailable Unavailable Encounter Details Date Type Department Care Team (Latest Contact Info) Description 06/10/2019 Abstract [facility] CONVERSION[facility] Dental, Provider, DDS Social [...] on filedocumented in this encounter Care Teams Parts Casting Machine Operator Relationship Specialty Start Date End Date Karolina Rivas CNP [address] [place] [address] PCP - General Family Medicine 04/28/22 Selwyn Noble, CABLE TENDER Community Health Worker Case Management 09/16/22 10/26/22 Cate Copeland, RN Registered Nurse Case Management 09/23/22 11/25/22 documented as of this encounter
--- OUTSIDE RECORDS SUMMARY | 2024-04-26 14:13 | XMS_ITS | Clinical Summary ---
Author Organization [employer] Address [address] [facility] 7t [place] [address] Care Team Providers Care Animal Handler Name Role Phone Karolina Rivas PIO Primary Care Provider [phone] Allergies Active Allergy Reactions Criticality Noted Date Comments Lisinopril Low 04/28/2022 Other reaction(s): hyperkalemia Medications Thiamine HCl (VITAMIN B-1 PO) Vitamin B-1 A ctive eplerenone (Inspra) 25 MG tablet Take 12.5 mg by mouth in the morning. Active Continuous Blood Gluc Dredge Master (FreeStyle Zully 2 Baker) device Sensor to be changed every 14 days 05/05/19 23 Active sacubitril-valsa rtan (Entresto) 97-103 MG tablet Take 1 tablet by mouth. 06/18/19 23 Active glucose blood (FREESTYLE LITE) test strip USE TO TEST SIX TIMES DAILY DIRECTED 01/30/20 21 Active insulin aspart (NovoLOG) 100 UNIT/ML pen Upto 12u max per meal tid with sliding scale 2u for sugar 100-150 and an additional 2u for each sugar increase by 50. 04/20/19 23 Active insulin pen needle (BD Pen Needle Ginger 2nd Gen) 32G x 4 mm misc USE DIRECTED UP TO 5 TIMES PER DAY SUBCUTANEOUSLY 450 each 11 12/01/19 23 Active amantadine (Symmetrel) 100 MG tablet TAKE ONE TABLET BY MOUTH ONCE DAILY for 90 90 tablet 3 09/04/19 24 Active amiodarone (Pacerone) 200 MG tablet Take 1 tablet (200 mg) by mouth Once per day. 90 tablet 3 09/04/19 24 Active metoprolol succinate XL (Toprol-XL) 25 MG 24 hr tablet Take 1 tablet (25 mg) by mouth Once per day. 90 tablet 3 09/04/19 24 Active folic acid (Folvite) 1 MG tablet Take 1 tablet (1 mg) by mouth Once per day. 90 tablet 3 09/04/19 24 Active insulin glargine (Lantus SoloStar) 100 UNIT/ML penIndications:T ype 1 diabetes mellitus with other kidney complication (CMS/HCC) Inject 12 Units under the skin at bedtime. 15 mL 11/07/19 24 Active rivaroxaban (Xarelto) 20 MG tabletIndication s:Paroxysmal atrial fibrillation (CMS/HCC) Take 1 tablet (20 mg) by mouth with evening meal. 90 tablet 3 03/06/20 24 Active Active Problems Problem Noted Date Diagnosed Date Chronic systolic congestive heart failure 2022 Family history of hypertrophic cardiomyopathy Anoxic brain injury 07/14/2022 Poor perfusion of leg 05/13/2022 Overview (07/21/2023): Last Assessment & Plan: Feet cold with slight mottling reddish-purple bilaterally, initially wearing wool socks and shoes. Bilateral pulses intact. Cap refill in toes 6-8 seconds. Strongly encouraged to discuss with PCP and visit with academic support specialist. Fatigue 05/04/2022 Hearing loss 05/04/2022 Heart failure with reduced ejection fraction 04/2022 Hyponatremia 05/04/2022 Paroxysmal atrial fibrillation 05/04/2022 Renal tubular acidosis 05/04/2022 SIADH (syndrome of inappropriate ADH production) 05/04/2022 Uncontrolled type 1 diabetes mellitus with hyper glycemia 05/04/2022 Yonathan Parkinson White pattern seen on electrocar diogram 05/04/2022 Mixed hyperlipidemia 05/14/2020 Overview (05/04/2022): Last Assessment & Plan: Continues on moderate intensity statin therapy Most recent lipid panel on file is from over a year ago, this was reviewed, LDL was at goal at that time Essential hypertension 04/10/2018 Overview (05/04/2022): Last Assessment & Plan: Well managed with BB, ARB, CCB and diuretic. Continue to monitor. Obstructive hypertrophic cardiomyopathy 04/10/19 19 Overview (05/04/2022): Last Assessment & Plan: Followed by cardiology regularly Not currently managed on statin therapy Most recent LDL on file (September 2016) was in desirable range, Winston reports more recent results were also in good range Assessment & Plan (07/16/2023 10:32 AM EDT): Echo 09/2022; followed by cardiology The left atrium is mildly dilated. There is mild mitral regurgitation. The left ventricular size is normal. There is moderate to severe concentric left ventricular hypertrophy. Infiltrative cardiomyopathy cannot be excluded. The LV systolic function is low normal . The left ventricular ejection fraction is 50-55 %. There are no regional wall motion abnormalities. Grade II, moderate diastolic dysfunction with pseudonormal LV filling pattern and increased LA pressure. Type 1 diabetes mellitus with kidney complicatio n 04/10/2018 Overview (07/14/2022): Last Assessment & Plan: Juan's glycemic control is fairly good in setting of poor impulse control following cardiac arrest with anoxic brain injury 1 year ago. His A1c is modestly improved and his CGM GMI is even better at 7.7%. He eats a fairly healthy diet and walks 4-5 miles daily weather permitting. Deniz finds that if Juan's bedtime sugar is <150 his low alarms alert overnight and has developed a scale for his Lantus as follows: <150 = 0 150s = 5u 180-200 = 8u >200 = 10u Changing his time of taking his Lantus to morning would likely not be helpful as his CGM data reveals near lows between 3-7pm and Juan wakes at variable times between 8am to 11 am. His best glucose patterns are days where he walks. We added taking 12u when bedtime glucose >300. Encouraged to have an afternoon snack if his lunch is earlier with dinner later and always carry one when hiking or walking. Deniz is comfortable with the SSI with meals from last time, although Juan would benefit with injecting at least 10 minutes earlier. Deniz will try to give his insulin a little sooner rather than when eating. Finally we discussed Juan's CKD. He follows with nephrology and is on a low potassium diet. They are unsure if his kidney function worsened due to his cardiac arrest or his DM or a combination. They will try to have records sent to our office. Reviewed hypoglycemia prevention, recognition and management. Encouraged to continue to make healthy diet choices and remain as physically active as tolerates. Encouraged to contact us with any concerns or question and follow up in 6 months. Encounters Date Type Department Care Team Description 03/06/2024 Annabelle Sanchez [facility] [address] [place] [id number] Karolina Rivas, PIO Paroxysmal atrial fibrillation ([facility]) from Last 3 Months Immunizations Name Administration Dates Next Due Hep B, adult 10/28/2019,06/03/2019,05/01/2019 INFLUENZA INJECTABLE QUADRIV ALANT CCIIV4 MDCK Multi-dose vial 02/08/2019 Influenza Injectable Quadriv alant Preservative Free IIV4 MDCK 02/14/2023 Influenza injectable quadriv alent preservative free 01/12/2022 Influenza, IIV3, injectable 02/01/2021,1 04/14/2019,03/06/2018,02/21,02/15/2016,02/18/2015,02/18/2014 ,03/05/2013 Influenza, Split (incl. francesco fied surface antigen) 03/07/2012,02/15/2011,03/17/2010 Influenza, Unspecified 02/01/2021 Moderna Covid-19 Vaccine 12+ 02/14/2023, 01/25/2021,07/19/2020,06/20 Moderna Covid-19 Vaccine 6+ Bivalent 02/02/2022 Novel [id number], all formulations 03/19/2009 Pneumococcal Polysaccharide PPSV23 09/16/2009 RSV Adjuvant 03/15/2023 TD (adult), 2 Lf tetanus tox oid, preservative free, adsorbed 04/13/2021,05/18/2004 Tdap 09/23/2011 Family History Medical History Relation Name Comments Hearing loss Brother Hyperlipidemia Father cerobrovascular accident Father d at 89 old age Coronary artery disease Mother Rheumatic fever Mother at 70 thyroid disorder Mother Relation Name Status Comments Brother Father Mother Social History Tobacco Use Types Packs/Day Years Used Date Smoking Tobacco: Never Smokeless Tobacco: Never Tobacco Cessation:Counseling Given: Not Answered Alcohol Use Standard Drinks/Week Comments Never 0 [...] Answer Date Recorded Patient Health Questionnaire-2 Score 2 07/19/2023 Education Answer Date Recorded What is the [...] not to disclose 2022 10:21 AM EST Last Filed Vital Signs Vital Sign Reading Time Taken Comments Blood Pressure 114/76 07/19/2023 2:36 PM EDT Pulse 45 07/19/2023 2:36 PM EDT Temperature 36.4 ??C (97.6 ??F) 07/19/2023 2:36 PM ED T Respiratory Rate 16 07/19/2023 2:36 PM EDT Oxygen Saturation 99% 02/14/2023 1:58 PM EST Inhaled Oxygen Concentration - - Weight 59.4 kg (131 lb) 07/19/2023 2:36 PM EDT Height 170.2 cm (5' 7 ) 07/19/2023 2:36 PM EDT Body Mass Index 20.52 07/19/2023 2:36 PM EDT Plan of Treatment Health Maintenance Due Date Last Done Comments CT Colonography 1961 FIT DNA/Cologuard 1961 FIT 1961 FOBT 1961 Sigmoidoscopy 1961 Eye Exam 1971 Alcohol/Substance Use Screening 1973 Hepatitis C Screening 1979 Pneumococcal Vaccine: Pediatrics (0 to 5 Years) and At-Risk Patients (6 to 64 Years) (2 of 2 - PCV) 09/16/2010 09/16/2009 Zoster Vaccines (1 of 2) 2011 Colonoscopy 01/01/2022 01/02/2012, 01/02/2012 Colorectal Cancer Screening 01/01/2022 Lipid Panel 07/16/2023 07/15/2022, 04/03, 04/21/2021, Additional history exists COVID-19 Vaccine ( season) 2023 02/14/2023, 02/02/2022, 01/25/2021, Additional history exists Influenza Vaccine (#1) 2023 , 01/12/2022, 02/01/2021, Additional history exists Dental Oral Exam 12/31/2023 06/29/2023, , 05/04/2022, Additional history exists Dental Prophylaxis 12/31/2023 06/29/2023, 0 10/21/2022, 05/04/2022, Additional history exists Diabetes: Hemoglobin A1C 05/22/2024 024, 06/12/2023, 10/12/2021, Additional history exists Tobacco Screening 06/28/2024 06/29/2023 Dental X-Ray: Bitewings 06/29/2024 06/29/19 24, 05/04/2022, 02/26/2021, Additional history exists Depression Screening 07/18/2024 07/19/2023, 07/19/19 Diabetes: Foot Exam 07/18/2024 07/19/2023, 07/19/2023, 07/19/2023, Additional history exists SDOH Screening 07/18/2024 07/19/2023 Dental X-Ray: Full Mouth 06/29/2026 024, 01/22/2020, 04/18/2013, Additional history exists DTaP/Tdap/Td Vaccines (3 - Td or Tdap) 04/13/2031 04/13/2021, 09/23/2011, 05/18/2004 HIV Screening Completed 08/28/2015 Hepatitis B Vaccines Completed 10/28/2019, 06/03/2019, 05/01/2019 RSV Patients and Patients Aged 60 years or older Completed 03/15/2023 HIB Vaccines Aged Out No longer eligi [...] patient's age to complete this topic Meningococcal Vaccine Aged Out No nancy abe eligible based on patient's age to complete this topic RSV under 20 months Aged Out No longe r eligible based on patient's age to complete this topic Rotavirus Vaccines Aged Out No longer eligible based on patient's age to complete this topic Procedures Procedure Name Priority Date/Time Associated Diagnosis Comments HEMOGLOBIN A1C Routine 11/20/2023 Full PROPHYLAXIS - ADULT Routine 06/29/2023 2:00 PM EDT DIAGNOSTIC - DIAGNOSTIC IMAGING - INTRAORAL - COMPREHENSIVE SERIES OF RADIOGRAPHIC IMAGES Routine 06/29/2023 2:00 PM EDT PERIODIC ORAL EVALUATION - ESTABLISHED PATIENT Routine 06/29/2023 2:00 PM EDT LIPID PANEL, STANDARD Routine 07/15/2022 9:12 AM EDT Essential hypertension Uncontrolled type 1 diabetes mellitus with hyperglycemia (CMS/HCC) Mixed hyperlipidemia HIV-1 ANTIBODY, EIA Routine 08/28/2015 HM COLONOSCOPY Routine 01/02/2012 from Last 3 Months or Most Recently Relevant to Health Maintenance Results * (ABNORMAL) Hemoglobin A1c (11/20/2023) Hemoglobin A1C 6.7(A) 4.0 - 6.0 % Blood Venous blood specimen / Unknown Historical Provider MD LAB BLOOD ORDERABLES Amaris l Result * Lipid panel (07/15/2022 9:12 AM EDT) Cholesterol, Total 160 (<200) MG/DL [facility] Triglyceride (mg/dL) in Serum/Plasma 68 (<150) MG/DL [facility] HDL Cholesterol 50 (>39) MG/DL [facility] LDL Cholesterol, Calculated 96 (0-130) MG/DL [facility] Non HDL Chol. (LDL+VLDL) 110 (<160) MG/DL [facility] Comment: Testing performed or reported by [facility], a Service of [facility], [address] [place] [address] Marilin Hwang MD, Needle Setter [facility]# [id number] Blood Venous blood specimen / Unknown 07/15/2022 9:12 AM EDT 07/15/2022 9:13 AM EDT Karolina Rivas CNP LAB BLOOD ORDERABLES Final Re sult [facility] [address] [place] [address] * HIV-1 antibody, EIA (08/28/2015) External HIV-1 Antibody Negative Blood Venous blood specimen / Unknown us Historical Provider LAB BLOOD ORDERABLES Amaris l Result * Colonoscopy (01/02/2012) [facility] Colonoscopy No polyps noted but prep was poor. Negative exam. Repeat exam in 10 yrs. unless clinically indicated before that time. Historical Provider HEALTH MAINTENANCE Final Result from Last 3 Months or Most Recently Relevant to Health Maintenance Insurance [facility] C3 DENTAL-[facility] MEDICAID STAND ADULT Care Teams Animal Handler Relationship Specialty Start Date End Date Karolina Rivas CNP [address] [place] [address] PCP - General Family Medicine 04/28/22
--- OUTSIDE RECORDS SUMMARY | 2024-04-26 14:13 | XMS_ITS | Encounter Summary ---
Author Organization [employer] Address [address] [facility] 7t [place] [address] Care Team Providers Care Clinical Services Assistant Name Role Phone Karolina Rivas CNP Primary Care Provider [phone] eSlwyn Noble STABLE HAND Unavailable Unavail able Cate Copeland RN Unavailable Unavailable Encounter Details Date Type Department Care Team (Latest Contact Info) Description 09/14/2020 Abstract [facility] CONVERSIONS Dental, Provider, DDS Social [...] on filedocumented in this encounter Care Teams Clinical Services Assistant Relationship Specialty Start Date End Date Karolina Rivas CNP [address] [place] [address] PCP - General Family Medicine 04/28/22 Selwyn Noble, STABLE HAND Community Health Worker Case Management 09/16/22 10/26/22 Cate Copeland, RN Registered Nurse Case Management 09/23/22 11/25/22 documented as of this encounter
--- OUTSIDE RECORDS SUMMARY | 2024-04-26 14:13 | XMS_ITS | Encounter Summary ---
Author Organization [employer] Address [address] [facility] 7t [place] [address] Care Team Providers Care Squeegeer And Former Name Role Phone Karolina Rivas CNP Primary Care Provider Selwyn Noble BUTT WELDER Unavailable Unavail able Cate Copeland RN Unavailable Unavailable Encounter Details Date Type Department Care Team (Latest Contact Info) Description 02/26/2021 Abstract [facility] CONVERSION[facility] Dental, Provider, DDS Social [...] on filedocumented in this encounter Care Teams Squeegeer And Former Relationship Specialty Start Date End Date Karolina Rivas CNP [address] [place] [address] PCP - General Family Medicine 04/28/22 Selwyn Noble, BUTT WELDER Community Health Worker Case Management 09/16/22 10/26/22 Cate Copeland, RN Registered Nurse Case Management 09/23/22 11/25/22 documented as of this encounter
--- OUTSIDE RECORDS SUMMARY | 2024-04-26 14:13 | XMS_ITS | Encounter Summary ---
Author Organization [employer] Address [address] [facility] 7t [place] [address] Care Team Providers Care Fabric Worker Name Role Phone Karolina Rivas CNP Primary Care Provider [phone] Selwyn Noble Unavailable Unavail able Cate Copeland RN Unavailable Unavailable Encounter Details Date Type Department Care Team (Late st Contact Info) Description 07/13/2022 Orders Only [facility] MEDICAL [address] [place] [address] Karolina Rivas CNP [address] [place] [address] Social History Tobacco Use Types Packs/Day Years Used Date Smoking Tobacco: Never Smokeless Tobacco: Never Alcohol Use Standard Drinks/Week Comments Never 0 (1 standard drink = 0.6 oz pur e alcohol) occ Depression Answer Date Recorded Patient Health Questionnaire-2 Score 0 07/14/2022 Sex and Gender Information Value Date [...] suspected to have Coronavirus/COVID-19? No / Unsure 07/14/2022 1:56 PM EDT documented as of this encounter Plan of Treatment Not on file documented as of this encounter Visit Diagnoses Not on filedocumented in this encounter Care Teams Fabric Worker Relationship Specialty Start Date End Date Karolina Rivas CNP [address] [place] [address] PCP - General Family Medicine 04/28/22 Selwyn Noble, NIALL Community Health Worker Case Management 09/16/22 10/26/22 Cate Copeland, RN Registered Nurse Case Management 09/23/22 11/25/22 documented as of this encounter
--- OUTSIDE RECORDS SUMMARY | 2024-04-26 14:13 | XMS_ITS | Encounter Summary ---
Author Organization [employer] Address [address] [facility] 7t [place] [address] Care Team Providers Care Clerical Supervisor Name Role Phone Karolina Rivas CNP Primary Care Provider [phone] Encounter Details Date Type Department Care Team (Late st Contact Info) Description 12/29/2023 Orders Only [facility] MEDICAL [address] [place] [address] Karolina Rivas CNP [address] [place] [address] Colon cancer screening Social History Tobacco Use Types Packs/Day Years [...] Procedure Name Priority Date/Time Associated Diagnosis Comments AMB REFERRAL TO GASTROENTEROLOGY Routine 12/26/2023 Colon cancer screening documented in this encounter Results * Referral to Gastroenterology (12/26/2023) Karolina Rivas CNP OUTPATIENT REFERRAL ORDERABLE S Final Result documented in this encounter Visit Diagnoses Diagnosis Colon cancer screening Special screening for malignant neoplasms, colon documented in this encounter Care Teams Clerical Supervisor Relationship Specialty Start Date End Date Karolina Rivas CNP [address] [place] [address] PCP - General Family Medicine 04/28/22 documented as of this encounter
--- OUTSIDE RECORDS SUMMARY | 2024-04-26 14:13 | XMS_ITS | Encounter Summary ---
Author Organization [employer] Address [address] [facility] 7t [place] [address] Care Team Providers Care Property Management Coordinator Name Role Phone Karolina Rivas CNP Primary Care Provider [phone] Selwyn Noble Unavailable Unavail able Cate Copeland RN Unavailable Unavailable Encounter Details Date Type Department Care Team (Late st Contact Info) Description 04/28/2022 Abstract [facility] MEDICAL [address] [place] [address] Karolina Rivas CNP [address] [place] [address] Social History Tobacco Use Types Packs/Day Years [...] on filedocumented in this encounter Care Teams Property Management Coordinator Relationship Specialty Start Date End Date Karolina Rivas CNP [address] [place] [address] PCP - General Family Medicine 04/28/22 Selwyn Noble LICSW Community Health Worker Case Management 09/16/22 10/26/22 Cate Copeland, JAYSON Registered Nurse Case Management 09/23/22 11/25/22 documented as of this encounter
--- OUTSIDE RECORDS SUMMARY | 2024-04-26 14:13 | XMS_ITS | Encounter Summary ---
Author Organization [employer] Address [address] [facility] [address] [place] [address] Care Team Providers Care Paleology Teacher Name Role Phone Karolina Rivas CNP Primary Care Provider [phone] Selwyn Noble TOOL STORAGE ATTENDANT Unavailable Unavail able Cate Copeland RN Unavailable Unavailable Encounter Details Date Type Department Care Team (Latest Contact Info) Description 10/31/2018 Abstract [facility] CONVERSIONS Dental, Provider, DDS Social [...] on filedocumented in this encounter Care Teams Paleology Teacher Relationship Specialty Start Date End Date Karolina Rivas CNP [address] [place] [address] PCP - General Family Medicine 04/28/22 Selwyn Noble, TOOL STORAGE ATTENDANT Community Health Worker Case Management 09/16/22 10/26/22 Cate Copeland, RN Registered Nurse Case Management 09/23/22 11/25/22 documented as of this encounter
--- OUTSIDE RECORDS SUMMARY | 2024-04-26 14:13 | XMS_ITS | Encounter Summary ---
Author Organization [employer] Address [address] [facility] [address] [place] [address] Care Team Providers Care Police Pilot Name Role Phone Karolina Rivas PIO Primary Care Provider [phone] Encounter Details Date Type Department Care Team (Late st Contact Info) Description 07/20/[address] [facility] [place] [facility] [address] [place] [address] Provider, MD Jesika Social History Tobacco Use [...] Procedure Name Priority Date/Time Associated Diagnosis Comments CYSTATIN C Routine 06/12/2023 2:41 PM EDT NT-PROBNP Routine 06/12/2023 2:41 PM EDT CBC WITH AUTO DIFFERENTIAL Routine 06/12/2023 2:41 PM EDT MICROALBUMIN, URINE, 24 HOUR Routine 06/12/2023 2:41 PM EDT URINALYSIS, COMPLETE Routine 06/12/2023 2:41 PM EDT ALT Routine 06/12/2023 2:41 PM EDT HEMOGLOBIN A1C Routine 06/12/2023 2:41 PM EDT CREATINE KINASE, TOTAL Routine 4 2:41 PM EDT BILIRUBIN, TOTAL Routine 06/12/2023 2:41 PM EDT HEPATIC FUNCTION PANEL Routine 4 2:41 PM EDT BASIC METABOLIC PANEL Routine 06/12/2023 2:41 PM EDT documented in this encounter Results * Hemoglobin A1c (06/12/2023 2:41 PM EDT) Blood Venous blood specimen / Unknown Historical Provider LAB BLOOD ORDERABLES Amaris l Result * ALT (06/12/2023 2:41 PM EDT) Blood Venous blood specimen / Unknown Historical Provider LAB BLOOD ORDERABLES Amaris l Result * Hepatic Function Panel (06/12/2023 2:41 PM EDT) Blood Venous blood specimen / Unknown Result [facility] MD LAB BLOOD ORDERABLES Amaris l Result * Basic Metabolic Panel (06/12/2023 2:41 PM EDT) Blood Venous blood specimen / Unknown Result [facility] MD LAB BLOOD ORDERABLES Amaris l Result * Cystatin C (06/12/2023 2:41 PM EDT) Result [facility] MD LAB BLOOD ORDERABLES Amaris l Result * NT-proBNP (06/12/2023 2:41 PM EDT) Venous blood specimen / Unknown Result [facility] MD LAB BLOOD ORDERABLES Amaris l Result * Creatine Kinase, Total (06/12/2023 2:41 PM EDT) Blood Venous blood specimen / Unknown Result [facility] MD LAB BLOOD ORDERABLES Amaris l Result * Bilirubin, Total (06/12/2023 2:41 PM EDT) Blood Venous blood specimen / Unknown Result [facility] MD LAB BLOOD ORDERABLES Amaris l Result * Microalbumin, urine, 24 hour (06/12/2023 2:41 PM EDT) Urine Urine specimen obtained by clean catch procedure / Unknown Result [facility] MD LAB URINE ORDERABLES Amaris l Result * Urinalysis Complete (06/12/2023 2:41 PM EDT) Urine (Urine, Random) Historical Provider LAB URINE ORDERABLES Amaris l Result * CBC auto differential (06/12/2023 2:41 PM EDT) Blood Venous blood specimen / Unknown Historical Provider LAB BLOOD ORDERABLES Amaris l Result documented in this encounter Visit Diagnoses Not on filedocumented in this encounter Care Teams Police Pilot Relationship Specialty Start Date End Date Karolina Rivas CNP [address] [place] [address] PCP - General Family Medicine 04/28/22 documented as of this encounter
--- OUTSIDE RECORDS SUMMARY | 2024-04-26 14:13 | XMS_ITS | Clinical Summary ---
Author Organization [facility] Address [address] [address] Phone Care Team Providers Care Foxing Painter Name Role Phone Pam Rob MD Primary Care Provider [phone] Allergies No known active allergies Medications amantadine (SYMMETREL) 100 MG capsule Take 100 mg by mouth 1 (one) time each day Active amiodarone (PACERONE) 200 MG tablet Take 200 mg by mouth 1 (one) time each day Active senna (SENOKOT) 8.6 MG tablet Take 1 tablet by mouth 1 (one) time each day Active traZODone (DESYREL) 50 MG tablet Take 50 mg by mouth every night Active rivaroxaban (XARELTO) 20 MG tablet Take 20 mg by mouth 1 (one) time each day with dinner Active metoprolol succinate XL (TOPROL XL) 25 MG 24 hr tablet Take 25 mg by mouth 1 (one) time each day Do not crush or chew. Active thiamine (VITAMIN B-1) 100 MG tablet Take 100 mg by mouth 1 (one) time each day Active insulin glargine (LANTUS) 100 UNIT/ML injection Inject 12 Units under the skin every night Active sodium chloride 1 g tablet Take 1 g by mouth in the morning and 1 g in the evening and 1 g before bedtime. Active metoprolol succinate XL (TOPROL-XL) 100 MG 24 hr tablet Take 50 mg by mouth 12/12/2012 Active folic acid (FOLVITE) 1 MG tablet Take 1 mg by mouth in the morning. 07/12/2021 Active Dapagliflozin Propanediol (Farxiga) 10 MG tablet Take 10 mg by mouth 1 (one) time each day 90 tablet 11 02/15/2023 Active spironolactone (ALDACTONE) 25 MG tablet Take 12.5 mg by mouth 1 (one) time each day 12/07/2023 Active Active Problems Problem Noted Date Diagnosed Date Chronic systolic congestive heart failure 2022 Acute nontraumatic kidney injury 02/15/2023 Benign hypertension 08/18/2021 Essential hypertension 08/18/2021 Hyperkalemia 08/18/2021 Obstructive hypertrophic cardiomyopathy 08/19/19 22 Encounters Date Type Department Care Team Description 02/22/2024 4:15 PM EST Office Visit [facility] [address] [address] Lalit Keyes MD Stage 3 chronic kidney disease, not otherwise specified (HCC) (Primary Dx); Heart failure with reduced ejection fraction (HCC); Hypertension from Last 3 Months Family History Medical History Relation Comments Heart disease Father Heart disease Mother Diabetes Sibling brother Relation Status Comments Father Mother Sibling Social History Tobacco Use Types Packs/Day Years Used Date Smoking Tobacco: Never Smokeless Tobacco: Never Tobacco Cessation:Counseling Given: Not Answered Alcohol Use Standard Drinks/Week Comments Not Currently 0 (1 standard drink = 0.6 oz pure alcohol) Alcoholic Drinks/day: Occasional social drink Sex and Gender Information Value Date Recorded Sex Assigned at Not on file Legal Sex Male 4:41 PM EST Gender Identity Not on file Sexual Orientation Not on file Last Filed Vital Signs Vital Sign Reading Time Taken Comments Blood Pressure 117/76 02/22/2024 3:27 PM EST Pulse 48 02/22/2024 3:27 PM EST Temperature - - Respiratory Rate - - Oxygen Saturation 97% 02/22/2024 3:27 PM EST Inhaled Oxygen Concentration - - Weight 54.7 kg (120 lb 9.6 oz) 02/22/2024 3:27 P M EST Height 175.3 cm (5' 9 ) 02/22/2024 3:27 PM EST Body Mass Index 17.81 02/22/2024 3:27 PM EST Plan of Treatment Upcoming Encounters Date Type Department Care Team (Late st Contact Info) Description 08/21/2024 3:00 PM EDT Office Visit [facility] [address] [place] [id number] Lalit Keyes MD [address] [facility] [address] [place] [address] Health Maintenance Due Date Last Done Comments Colorectal Cancer Screening: Annual FOBT 2010 Colorectal Cancer Screening: Colonoscopy 2010 Colorectal Cancer Screening: Sigmoidoscopy 2010 Pneumococcal Vaccine: Pediatrics (0 to 5 Years) and At-Risk Patients (6 to 64 Years) (2 of 2 - PCV) 09/16/2010 09/16/2009 Diabetes: Ophthalmology Exam 08/18/2021 Diabetes: Pedal Pulse Checked 08/18/2021 Diabetes: Sensory Foot Exam 08/18/2021 Diabetes: Visual Foot Exam 08/18/2021 Influenza Vaccine (#1) 2023 3, 01/12/2022, 02/01/2021, Additional history exists Diabetes: Hemoglobin A1C 02/20/2024 11/20/2023, 02/01 Hepatitis B Vaccine Aged Out 10/28/2019, 06/03/2019, 05/01/2019 No longer eligible based on patient's age to complete this topic Procedures Procedure Name Priority Date/Time Associated Diagnosis Comments HEMOGLOBIN A1C Routine 02/15/2023 10:05 AM EST from Last 3 Months or Most Recently Relevant to Health Maintenance Results * (ABNORMAL) Hemoglobin A1c (02/15/2023 10:05 AM EST) Hemoglobin A1C 7.6(H) (4.0-5.6) % [facility] Comment: MONITORING: In known diabetic patients, hemoglobin A1c targets should be discussed with health care provider. DIAGNOSTIC USE: ??The [place] Diabetes Association (ADA) and the World Health Organization (WHO) recommend the use of HbA1c to diagnose diabetes using a threshold of 6.5%. Patients who have an HbA1c between 5.7% and 6.4% are considered at increased risk for developing diabetes in the future. CAUTION: Falsely low HbA1c results may be observed in patients with hemolytic anemia, homozygous forms of abnormal hemoglobin (e.g. SS, CC, SC), , recent blood loss or hemoglobin F greater than 7%. Fructosamine may be used as an alternate test in these cases. REFERENCE: ADA: Standards of Medical Care in Diabetes 2020, The Journal of Clinical and Applied Research and Education Volume 43, Supplement 1 Testing performed or reported by [facility], a Service of [facility], [address] [place] [address] Camron Carter MD, Brilliandeer Lopper [facility]# [id number] 02/15/2023 10:0 5 AM EST 02/15/2023 10:11 AM EST us Torsten Reeves MD LAB BLOOD ORDERABLES Final Re sult [facility] from Last 3 Months or Most Recently Relevant to Health Maintenance [place] Care Teams Foxing Painter Relationship Specialty Start Date End Date Pam Rob MD [address] [place] [address] MS PCP - General 04/13/20
== END 2024-04-26 12:08 | disposition home or self-care (01) ==
LOC: HO.HAP 12:07
PROVIDERS: Visit Provider Nurse Practitioner Family
DX: Z46.1 Encounter for fitting and adjustment of hearing aid (principal); H90.3 Sensorineural hearing loss, bilateral; H69.91 Unspecified Eustachian tube disorder, right ear
CPT/HCPCS: V5266

== ENCOUNTER 2024-09-02 12:59 | Outpatient (REF) | payer MEDICAID, SELFPAY | END 2024-09-02 13:00 | disposition home or self-care (01) | LOC: HO.SH 12:59 | PROVIDERS: Visit Provider Nurse Practitioner Family | DX: Z01.118 Encounter for examination of ears and hearing with other abnormal findings (principal); H90.3 Sensorineural hearing loss, bilateral | CPT/HCPCS: V5266 ==

== ENCOUNTER 2024-12-16 16:08 | Outpatient (REF) | payer MEDICAID, SELFPAY ==
--- OUTSIDE RECORDS SUMMARY | 2024-08-26 14:27 | XMS_ITS | Encounter Summary ---
Author Organization [facility] Address [address] [facility] [address] [place] [address] Phone Care Team Providers Care Technical Services Librarian Name Role Phone Shnatell Blackman MD Unavailable [phone] Karolina Rivas SCHOOL ADMINISTRATOR Primary Care Provider [phone] Encounter Details Date Type Department Care Team (Late st Contact Info) Description 08/26/2024 2:27 PM EDT Hospital Encounter [facility] [address] [place] [address] Melyssa Lorenz CNP [address] [place], [place] [id number] [email or web address] Social History Tobacco Use Types Packs/Day Years Used Date Smoking Tobacco: Former Cigarettes Q uit: 04/03/1999 Smokeless Tobacco: Never Comments:15-20 pack year his tory Alcohol Use Standard Drinks/Week Comments Not Currently 0 (1 standard drink = 0.6 oz pure alcohol) One or two drinks per month at most Education Answer Date Recorded Are you interested in more education? Not on yudy e 07/29/2022 Are you concerned about learning? Not on file 07/29/2022 No 07/29/2022 No 07/29/2022 Digital Access Answer Date Recorded No 08/29/2022 No 08/29/2022 Reliable internet access at home? Not on file 08/29/2022 Device with a working camera? Not on file Intimate Partner Violence Answer Date R ecorded Are you denied basic needs s uch as food, clothing, or medical care? No 09/19/2023 In the past 12 months have y ou been in a relationship with a person who hurts, threatens, or tries to control you? No 09/19/2023 Are you denied basic needs s uch as food, clothing, or medical care? No 09/19/2023 In the past 12 months have y ou been in a relationship with a person who hurts, threatens, or tries to control you? No 09/19/2023 Sex and Gender Information Value Date Recorded Sex Assigned at Not on file Legal Sex Male 1:42 PM EDT Gender Identity Not on file Sexual Orientation Not on file documented as of this encounter Plan of Treatment Upcoming Encounters Date Type Department Care Team (Late st Contact Info) Description 02/07/2025 11:00 AM EST Evaluation [facility] [address] [address] Elizabeth Saavedra AuD [address] [place] [id number] [email or web address] 05/29/2025 11:00 AM EST Evaluation [facility] [address] [address] aJnae Perez AuD [address] [place] [id number] [email or web address] 05/29/2025 11:45 AM EST Office Visit [facility] [address] [address] Ayanna Iqbal MD [address] [place] [address] [place] [address] [email or web address] documented as of this encounter Procedures Procedure Name Priority Date/Time Associated Diagnosis Comments XR CHEST PA AND LATERAL 2 VIEWS Urgent/patient waiting 08/26/2024 2:32 PM EDT Shortness of breath documented in this encounter Results * XR CHEST PA AND LATERAL 2 VIEWS (08/26/2024 2:32 PM EDT) Anatomical Region Laterality Modality Chest Computed Radiogr aphy 08/26/2024 2:55 PM EDT Impressions 08/26/2024 3:37 PM EDT Small pleural effusions with probable overlying atelectasis. ATTESTATION: Gonzalez Khan as teaching physician, have reviewed the images for this case and if necessary edited the report originally created by Tish Martinez. Narrative 08/26/2024 3:37 PM EDT XR CHEST PA AND LATERAL 2 VIEWS Referring clinician's provided indication for this examination in Epic: Cough; Dyspnea (Shortness of Breath) COMPARISON: None FINDINGS: Devices/Tubes/Lines: None. Lungs: Bibasal bronchiectasis. Linear opacity in the left midlung likely subsegmental atelectasis Pleura: Bilateral small pleural effusions, right greater than left. Heart/Mediastinum: Normal cardiac silhouette. Bones/Soft Tissues: Degenerative changes of the imaged spine. Procedure Note Gonzalez Rodriguez MD - 08/26/2024 XR CHEST PA AND LATERAL 2 VIEWS Referring clinician's provided indication for this examination in Epic:Cough; Dyspnea (Shortness of Breath) COMPARISON: None FINDINGS: Devices/Tubes/Lines: None. Lungs: Bibasal bronchiectasis. Linear opacity in the left midlung likelysubsegmental atelectasis Pleura: Bilateral small pleural effusions, right greater than left. Heart/Mediastinum: Normal cardiac silhouette. Bones/Soft Tissues: Degenerative changes of the imaged spine. IMPRESSION: Small pleural effusions with probable overlying atelectasis. ATTESTATION: Gonzalez Khan as teaching physician, have reviewed theimages for this case and if necessary edited the report originally createdby Tish Martinez. Melyssa Lorenz SCHOOL ADMINISTRATOR IMG XR CHEST Final Resul t documented in this encounter Visit Diagnoses Not on filedocumented in this encounter Care Teams Technical Services Librarian Relationship Specialty Start Date End Date Karolina Rivas CNP [address] [place] [address] [email or web address] PCP - General Nurse Practitioner 09/14/23 Shantell Blackman MD [address] [place] [address], [address] [place] [address] [email or web address] Historical LMR Provider 01/18/17 documented as of this encounter Additional Source Comments The information contained in this document represents components of the legal health record. It is not the complete legal health record.[facility]
--- OUTSIDE RECORDS SUMMARY | 2024-12-16 21:17 | XMS_ITS | Encounter Summary ---
Author Organization [employer] Address [address] [facility] [address] [place] [address] Care Team Providers Care Fancy Needleworker Name Role Phone Karolina Rivas CNP Primary Care Provider [phone] Ebonie Spears Unavailable Encounter Details Date Type Department Care Team (Late st Contact Info) Description 11/17/2024 Orders Only [place] [facility] [address] [place] [address] Karolina Rivas CNP [address] [place] [address] Social History Tobacco Use Types Packs/Day Years Used Date Smoking Tobacco: Never Smokeless Tobacco: Never Alcohol Use Standard Drinks/Week Comments Never 0 (1 standard drink = 0.6 oz pur e alcohol) occ Alcohol Answer Date Recorded How often do you have a drink containing alcohol ? 0 08/28/2024 How many drinks containing a lcohol do you have on a typical day when you are drinking? 0 08/28/2024 How often do you have six or more drinks on one occasion? 0 08/28/2024 Depression Answer Date Recorded Patient Health Questionnaire-9 Score 4 08/28/2024 Patient Health Questionnaire-9 Score 4 08/28/2024 Last PHQ-9: Questionnaire Data Not on file 0 08/28/2024 Housing Stability Answer Date Recorded What is your housing situation today? I have ron cline 08/28/[address] you li ve. Do you have problems with any of the following? None of the above 08/28/2024 Food Insecurity Answer Date Recorded Within the past 12 months, y ou worried that your food would run out before you got money to buy more: Never True 08/28/2024 Within the past 12 months,th e food you bought just didn't last and you didn't have enough money to get more: Never True Transportation Answer Date Recorded In the past 12 months, has l ack of transportation kept you from medical appts, meetings, work or from getting things needed for daily living? No 08/28/2024 Utilities Answer Date Recorded In the past 12 months, has t he electric, gas, oil or water company threatened to shut off services in your home? No 08/28/2024 Depression Answer Date Recorded Patient Health Questionnaire-2 Score 2 08/28/2024 Internet Access Answer Date Recorded Internet Access Q1 Yes 08/28/2024 Internet Access Q2 Not on file 08/28/2024 Education Answer Date Recorded What is the [...] Care Team (Late st Contact Info) Description 03/05/2025 3:00 PM EST Office Visit [facility] [address] [place] [address] Karolina Rivas CNP [address] [place] [address] documented as of this encounter Procedures Procedure Name Priority Date/Time Associated Diagnosis Comments CBC Routine 10/29/2024 12:10 PM EDT XR ABDOMEN AP Routine 10/29/2024 12:09 PM EDT documented in this encounter Results * CBC (10/29/2024 12:10 PM EDT) Blood Venous blood specimen / Unknown Karolina Rivas CNP LAB BLOOD ORDERABLES Final Re sult * XR ABDOMEN AP (10/29/2024 12:09 PM EDT) Anatomical Region Laterality Modality Abdomen Radiographic Stacie ging Karolina Rivas QUARRYMAN IMG XR PROCEDURES Final Resul t documented in this encounter Visit Diagnoses Not on filedocumented in this encounter Additional Health Concerns Assessment Noted Time PHQ-9 Depression Total Score: 4 08/29/19 25 11:49 AM EDT documented as of this encounter Care Teams Fancy Needleworker Relationship Specialty Start Date End Date Karolina Rivas CNP [address] [place] [address] PCP - General Family Medicine 04/28/22 Ebonie Spears 12/13/24 documented as of this encounter
--- OUTSIDE RECORDS SUMMARY | 2024-12-16 21:17 | XMS_ITS | Encounter Summary ---
Author Organization [facility] Address [address] [facility] [address] [place] [address] Phone Care Team Providers Care Alumina Refinery Operator Name Role Phone Mona Mulligan MD Primary Care Provider Shantell Blackman MD Unavailable [phone] Karolina Rivas CNP Primary Care Provider [phone] Encounter Details Date Type Department Care Team (Late st Contact Info) Description 01/26/2023 Procedure Pass [facility] [place] [address] [place] [address] Social History Tobacco Use Types Packs/Day Years Used Date Smoking Tobacco: Former Cigarettes Q uit: 04/03/1999 Smokeless Tobacco: Never Comments:15-20 pack year his tory Alcohol Use Standard Drinks/Week Comments Yes 0 (1 standard drink = 0.6 oz pur e alcohol) rare, wine Education Answer Date Recorded Are you interested in more education? Not on yudy e 07/29/2022 Are you concerned about learning? Not on file 07/29/2022 No 07/29/2022 No 07/29/2022 Digital Access Answer Date Recorded No 08/29/2022 No 08/29/2022 Reliable internet access at home? Not on file 08/29/2022 Device with a working camera? Not on file Sex and Gender Information Value Date Recorded Sex Assigned at Not on file Legal Sex Male 1:42 PM EDT Gender Identity Not on file Sexual Orientation Not on file documented as of this encounter Plan of Treatment Upcoming Encounters Date Type Department Care Team (Late st Contact Info) Description 02/07/2025 11:00 AM EST Evaluation [facility] AUDIOLOGY [address] [address] Elizabeth Saavedra, AuD [address] [place] [phone] [email or web address] 05/29/2025 11:00 AM EST Evaluation [facility] Audiology [address] [address] Janae Perez, AuD [address] [place] [id number] [email or web address] 05/29/2025 11:45 AM EST Office Visit [facility] Otology [address] [address] Ayanna Iqbal MD [address] [place] [address] [place] [address] [email or web address] documented as of this encounter Visit Diagnoses Not on filedocumented in this encounter Care Teams Alumina Refinery Operator Relationship Specialty Start Date End Date Mona Mulligan MD [address] [place] [address] PCP - General Internal Medicine 01/18/16 09/13/23 Karolina Rivas CNP [address] [place] [address] [email or web address] PCP - General Nurse Practitioner 09/14/23 Shantell Blackman MD [address] [facility], [address] [place] [address] [email or web address] Historical LMR Provider 01/18/17 documented as of this encounter Additional Source Comments The information contained in this document represents components of the legal health record. It is not the complete legal health record.[facility]
--- OUTSIDE RECORDS SUMMARY | 2024-12-16 21:17 | XMS_ITS | Encounter Summary ---
Author Organization [employer] Address [address] [facility] [address] [place] [address] Care Team Providers Care Retail Presentation Specialist Name Role Phone Karolina Rivas CNP Primary Care Provider [phone] Ebonie Spears Unavailable Ebonie Spears Unavailable Encounter Details Date Type Department Care Team (Late st Contact Info) Description 10/23/2024 Orders Only [place] [facility] [address] [place], [place] [id number] Karolina Rivas CNP [address] [place] [address] Social History Tobacco Use Types Packs/Day Years [...] your housing situation today? I have ron sing 08/28/[address] you li [...] Description 03/05/2025 3:00 PM EST Office Visit [place] [facility] [address] [place] [address] Karolina Rivas CNP [address] [place] [address] documented as of this encounter Procedures Procedure Name Priority Date/Time Associated Diagnosis Comments COMPREHENSIVE METABOLIC PANEL Routine 10/20/2024 9:45 AM EDT documented in this encounter Results * Comprehensive Metabolic Panel (10/20/2024 9:45 AM EDT) Blood Venous blood specimen / Unknown Karolina Rivas CNP LAB BLOOD ORDERABLES Final Re sult documented in this encounter Visit Diagnoses Not on filedocumented in this encounter Additional Health Concerns Assessment Noted Time PHQ-9 Depression Total Score: 4 08/29/19 25 11:49 AM EDT documented as of this encounter Care Teams Retail Presentation Specialist Relationship Specialty Start Date End Date Karolina Rivas CNP [address] [place] [address] PCP - General Family Medicine 04/28/22 Ebonie Spears 10/22/24 10/28/24 Ebonie Spears 12/13/24 documented as of this encounter
--- OUTSIDE RECORDS SUMMARY | 2024-12-16 21:17 | XMS_ITS | Encounter Summary ---
Author Organization [employer] Address [address] [facility] [place] [address] Care Team Providers Care Assault Amphibious Vehicle Crewman Name Role Phone AuroradannielleKarolina peña PIO Primary Care Provider [phone] Ebonie Spears Unavailable Ebonie Spears Unavailable Encounter Details Date Type Department Care Team (Late st Contact Info) Description 03/05/2023 Orders Only [place] [facility] [address] [place] [address] Provider, MD Jesika Social History Tobacco Use [...] Description 03/05/2025 3:00 PM EST Office Visit [facility] [address] [place] [address] Karolina Rivas CNP [address] [place] [address] documented as of this encounter Procedures Procedure Name Priority Date/Time Associated Diagnosis Comments HEPATIC FUNCTION PANEL Routine 01/18/2023 BASIC METABOLIC PANEL Routine 01/18/2023 documented in this encounter Results * Hepatic Function Panel (01/18/2023) Blood Venous blood specimen / Unknown Historical Provider LAB BLOOD ORDERABLES Amaris l Result * Basic Metabolic Panel (01/18/2023) Blood Venous blood specimen / Unknown Historical Provider LAB BLOOD ORDERABLES Amaris l Result documented in this encounter Visit Diagnoses Not on filedocumented in this encounter Care Teams Assault Amphibious Vehicle Crewman Relationship Specialty Start Date End Date Karolina Rivas CNP [address] [place] [address] PCP - General Family Medicine 04/28/22 Ebonie Spears 10/22/24 10/28/24 Ebonie Spears 12/13/24 documented as of this encounter
--- OUTSIDE RECORDS SUMMARY | 2024-12-16 21:17 | XMS_ITS | Clinical Summary ---
Author Organization [facility] Address [address] [facility] [address] [place] [address] Phone Care Team Providers Care Centrifugal Station Operator Name Role Phone Shantell Blackman MD Unavailable [phone] Karolina Rivas [facility] Primary Care Provider [phone] Allergies Active Allergy Reactions Criticality Noted Date Comments Lisinopril Low 04/28/2022 Other reaction(s): hyperkalemia Medications amLODIPine (NORVASC) 5 MG tablet Take 5 mg by mouth daily. 10/10/19 15 Active insulin pen needles, disposable, (BD ULTRA-FINE DAVID PEN NEEDLE) 32 gauge x 5/32 NdleIndications:Ty pe 1 diabetes mellitus with diabetic mononeuropathy use up to 5 times per day with insulin administration 450 each 3 11/13/19 21 Active amantadine HCl (SYMMETREL) 100 mg capsule Take 100 mg by mouth daily. Active metoprolol succinate (TOPROL-XL) 25 MG 24 hr tablet Take 25 mg by mouth daily. Active amiodarone (PACERONE) 200 MG tablet Take 200 mg by mouth daily. Active rivaroxaban (XARELTO) 20 mg Tab Take 20 mg by mouth daily. Active folic acid (FOLVITE) 1 MG tablet Take 1 mg by mouth daily. Active thiamine (VITAMIN B-1) 100 MG tablet Take 100 mg by mouth daily. Active eplerenone (INSPRA) 25 MG tablet Take 12.5 mg by mouth daily. Take 1/2 tablet daily 02/15/20 Active sacubitriL-valsart an (ENTRESTO) 97-103 mg per tablet Take 1 tablet by mouth 2 (two) times a day. 12/08/19 23 Active FREESTYLE LITE Strp stripsIndications: Type 1 diabetes mellitus Inject 1 each under the skin 3 (three) times a day before meals. When in between sensors and on MDI basal bolus insulin 50 strip 3 06/01/19 24 Active LANTUS SOLOSTAR U-100 INSULIN 100 unit/mL (3 mL) InPn injection penIndications:Typ e 1 diabetes mellitus with diabetic mononeuropathy Inject 10 Units under the skin daily. 11 units 30 mL 06/02/19 24 Active ofloxacin (FLOXIN) 0.3 % otic solution Place 5 drops into the right ear 2 (two) times a day. 10 mL 3 06/02/19 24 Active Additional Information Patient not taking.Reported on 09/12/2023 atorvastatin (LIPITOR) 20 MG tablet Take 20 mg by mouth daily. Active melatonin 3 mg Tab Take 3 mg by mouth nightly at bedtime as needed. Active ketoconazole 2 % cream Apply topically 2 (two) times a day. 09/05/19 24 Active oxyCODONE 5 MG immediate release tablet Take 1 tablet (5 mg total) by mouth every 4 (four) hours as needed. Partial fill ok 4 tablet 09/19/19 Active Additional Information Patient not taking.Reported on 07/09/2024 FREESTYLE ZULLY 2 READERIndications: 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 1 each by Miscellaneous route as needed for other (free text field). Use as instructed 1 each 11/06/19 24 Active ONETOUCH VERIO FLEX METER Misc meterIndications:T ype 1 diabetes mellitus with kidney complication by Miscellaneous route as needed. Used to test glucose 4 times daily when CGM fails 1 each 11/29/19 24 Active ONETOUCH VERIO Strp stripsIndications: 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 1 each by Miscellaneous route 4 (four) times a day. 400 strip 3 11/29/19 24 Active FREESTYLE ZULLY 2 SENSOR kitIndications:Typ e 1 diabetes mellitus Sensor to be changed every 14 days 6 each 3 02/09/20 24 Active Additional Information Patient not taking.Reported on 07/09/2024 ONETOUCH DELICA LANCETS 30 gauge MiscIndications:Ty pe 1 diabetes mellitus with kidney complication 1 each by Miscellaneous route 4 (four) times a day. 400 each 3 02/16/20 24 Active FREESTYLE ZULLY 2 PLUS SENSOR DeviIndications:Ty pe 1 diabetes mellitus with kidney complication 1 each by Miscellaneous route every 14 (fourteen) days. 6 each 3 07/10/19 25 Active spironolactone (ALDACTONE) 25 MG tablet Take 12.5 mg by mouth. 12/07/19 24 Active insulin aspart U-100 (NOVOLOG) 100 unit/mL (3 mL) injection penIndications:Typ e 1 diabetes mellitus with kidney complication Inject 2-12 Units under the skin 3 (three) times a day with meals. Inject 2-12 units 3 times daily. For a total daily dose of 36 units. 30 mL 3 08/31/19 25 Active Active Problems Problem Noted Date Diagnosed Date Chronic systolic congestive heart failure 2022 Anoxic brain injury 07/14/2022 Poor perfusion of leg 05/13/2022 Assessment & Plan (05/16/2023 1:02 PM EST): Feet cold with slight mottling reddish-purple bilaterally, initially wearing wool socks and shoes. Bilateral pulses intact. Cap refill in toes 6-8 seconds. Strongly encouraged to discuss with PCP and visit with sewer pipe press operator. Assessment & Plan (05/13/2022 3:50 PM EST): Left lower ankle and foot, only, was mottled and cold when dangling on exam table. No edema noted with equal pedal and posterior tibial pulses intact bilaterally. Improved when foot elevated. Strongly encouraged to notify PCP of this finding. Dystrophic, discolored toenails - encouraged to see a sewer pipe press operator with list provided. Fatigue 05/04/2022 Heart failure with reduced ejection fraction 04/2022 Hyponatremia 05/04/2022 Yonathan Parkinson White pattern seen on electrocar diogram 05/04/2022 Uncontrolled type 1 diabetes mellitus with hyper glycemia 05/04/2022 SIADH (syndrome of inappropriate ADH production) 05/04/2022 Paroxysmal atrial fibrillation 05/04/2022 Hyperkalemia 08/18/2021 Mixed hyperlipidemia 05/14/2020 Assessment & Plan (07/09/2024 3:01 PM EDT): Continues on moderate intensity statin therapy No recent labs available Assessment & Plan (11/20/2023 2:12 PM EDT): Continues on moderate intensity statin therapy No recent labs available Assessment & Plan (05/16/2023 1:02 PM EST): Continues on moderate intensity statin therapy No recent labs available Assessment & Plan (11/10/2022 11:03 AM EDT): Continues on moderate intensity statin therapy No recent labs available Assessment & Plan (05/13/2022 3:21 PM EST): Continues on moderate intensity statin therapy Most recent lipid panel on file is from over a year ago, this was reviewed, LDL was at goal at that time Assessment & Plan (11/02/2021 2:41 PM EDT): Continues on moderate intensity statin therapy Most recent lipid panel on file is from over a year ago, this was reviewed, LDL was at goal at that time Assessment & Plan (05/17/2021 5:59 PM EST): Continues on moderate intensity statin therapy Most recent lipid panel on file is from over a year ago, this was reviewed, LDL was at goal at that time Assessment & Plan (11/12/2020 2:49 PM EDT): Continues on moderate intensity statin therapy Most recent lipid panel is from one year ago, this was reviewed, LDL was at goal Assessment & Plan (05/14/2020 6:14 PM EST): Continues on moderate intensity statin therapy Most recent lipid panel reviewed, LDL is at goal Essential hypertension 04/10/2018 Assessment & Plan (07/09/2024 3:01 PM EDT): Blood pressure in good range today BP Goal < 130/80 Continues on ARB Assessment & Plan (11/10/2022 11:01 AM EDT): Well managed with BB, ARB, CCB and diuretic. Continue to monitor. Assessment & Plan (05/13/2022 3:21 PM EST): Well managed with BB, ARB, CCB and diuretic. Continue to monitor. Assessment & Plan (11/02/2021 11:36 AM EDT): Well managed with BB, ARB, CCB and diuretic. Continue to monitor. Assessment & Plan (05/17/2021 5:59 PM EST): Blood pressure is very well controlled Antihypertensive therapy includes CCB and BB, not currently on ACEi or ARB Assessment & Plan (11/12/2020 2:48 PM EDT): Blood pressure is very well controlled Antihypertensive therapy includes CCB and BB, not currently on ACEi or ARB Assessment & Plan (05/14/2020 6:12 PM EST): Blood pressure is very well controlled Antihypertensive therapy includes CCB and BB, not currently on ACEi or ARB Assessment & Plan (11/07/2019 10:53 PM EDT): Blood pressure is well controlled Antihypertensive therapy includes CCB and BB, not currently on ACEi or ARB Assessment & Plan (05/09/2019 5:15 PM EST): Blood pressure is well controlled No currently on ACEi or ARB Assessment & Plan (10/11/2018 5:41 PM EDT): Blood pressure is well controlled No currently on ACEi or ARB Assessment & Plan (04/10/2018 11:28 AM EST): Well controlled blood pressure on current CCB therapy Winston is not managed on ACEi Hypertrophic cardiomyopathy 04/10/2018 Assessment & Plan (04/10/2018 11:29 AM EST): Followed by cardiology regularly Not currently managed on statin therapy Most recent LDL on file (September 2016) was in desirable range, Winston reports more recent results were also in good range Type 1 diabetes mellitus with kidney complicatio n 04/10/2018 Assessment & Plan (07/09/2024 6:58 PM EDT): CGM indicates reasonable control, as does A1c Continues on CGM which is an invaluable tool since Winston does not feel symptomatic of hypoglycemia or cannot verbalize when having a hypoglycemic episode Concern for hypoglycemia given lower ability in reporting and treating hypoglycemia, especially when without Freestyle Zully with alarm function We discussed importance in consistent basal insulin dosing and not dosing based on one blood sugar as this will affect blood sugar patterns over 24 hours Advised taking 5 units of Lantus daily and we will adjsut based of fasting pattern, I will check in at the end of the week, advised having a snack at night if BG is <120 to prevent nocturnal hypoglycemia, encouraged continuing current dose of short acting insulin Discussed hypoglycemia at length today, it would be appropriate for Winston to maintain A1c 7-8% and with goal TIR >50% to help reduce the risk of hypoglycemia given cognitive and communicative deficits Encouraged efforts at balanced, mindful eating Encouraged efforts at increasing physical activity as tolerated We will follow up in 4 months. Advised to contact office with any questions or concerns Assessment & Plan (11/20/2023 2:15 PM EDT): CGM indicates reasonable control, as does A1c Continues on CGM which is an invaluable tool since Winston does not feel symptomatic of hypoglycemia or cannot verbalize when having a hypoglycemic episode Concern for hypoglycemia given lower ability in reporting and treating hypoglycemia, especially when without Freestyle Zully with alarm function We discussed importance in consistent basal insulin dosing and not dosing based on one blood sugar as this will affect blood sugar patterns over 24 hours Advised continuing current doses, but logging basal insulin doses for 3-5 days, this will provide a better idea of what the fixed insulin dose should be for basal insulin Discussed hypoglycemia at length today, it would be appropriate for Winston to maintain A1c 7-8% and with goal TIR >50% to help reduce the risk of hypoglycemia given cognitive and communicative deficits Encouraged efforts at balanced, mindful eating Encouraged efforts at increasing physical activity as tolerated We will follow up in 6 months, sooner visit was offered but this was politely declined. Advised to contact office with any questions or concerns Assessment & Plan (05/16/2023 12:57 PM EST): Juan's sugars have been somewhat variable with visiting family. His average glucose is 178 with 51% of his sugars are in target range. His sugars are slightly higher than last visit which is likely due to less physical activity as his brother and caregiver has been ill with fewer and shorter daily walks in general. We discussed the effects of physical activity on sugars as well as reviewed healthy snack options. Plan- Reviewed how to safely correct high sugar with his sister for when and if he stays with them for safety. At bedtime give a little snack if sugar <120 At bedtime if sugar is >400 give 2u, if 300-400 then give 1u Fiasp and hydrate If very active day before or expects to be active the next day, then reduce by 1-2u of nightly Lantus. No recent labs of kidney function, on a low potassium diet and follows with nephrology. Reviewed hypoglycemia prevention, recognition and management. Encouraged to continue to make healthy diet choices and remain as physically active as tolerates. Encouraged to contact us with any concerns or questions and follow up in 6 months Assessment & Plan (11/10/2022 11:13 AM EDT): Juan has significantly improved his A1c from 8% in May to 7.3% today. He continues on a sliding scale for Lantus which tends to work well for him and Novolog with meals. He is injecting his bolus insulin a little sooner prior to eating. His rare lows and steep decreases in sugar are likely related to dialing in higher dose. Juan is a little less active recently due to his brother's illness, although still walking a little bit daily. He continues to eat a healthy diet. Insulin was not adjusted. Follows with Dr Reeves in nephrology. No recent labs available, but mention of recent hyponatremia. Reviewed hypoglycemia prevention, recognition and management. Congratulated Juan and Deniz on his good efforts and progress. Encouraged to continue to make healthy diet choices and remain as physically active as tolerates. Encouraged to contact us with any concerns or questions and follow up in 6 months. Assessment & Plan (05/13/2022 3:59 PM EST): Nicoláss glycemic control is fairly good in setting [...] question and follow up in 6 months. Assessment & Plan (11/02/2021 2:46 PM EDT): Nicoláss diabetic regimen is now under the supervision of his brother Deniz since his cardiac arrest with subsequent anoxic brain injury. His basal insulin has remained the same, but his bolus insulin is on a low intensity sliding scale with meals and few carbs at dinner. Juan is chronically hyperglycemic with breakfast through late afternoon. Deniz remains concerned about low sugars in the late afternoon and reservation manager wee hours. Discussed and educated the pharmacokinetics of basal insulin and emphasized importance of taking consistently. Provided an more intensive sliding scale with breakfast and lunch only. For breakfast and lunch give his Novolog as follows: Blood Sugar Insulin <100 none 100-150 2 151-200 4 201-250 6 251-300 8 301-350 10 >350 12 and call Additionally encouraged providing slightly more carb content with dinner. This should improve Juan's glycemic control gradually while helping Deniz to feel more comfortable with managing his brothers variability. Discussed correction dose of 1u humalog to lower sugar by 100 with a target 120 when acutely high 2 hours post meal. Reviewed importance of hydration and when to notify provider or seek urgent medical attention. Reviewed hypoglycemia prevention, recognition and management with literature provided. prosthodontist/educator referral provided. Encouraged to continue to make healthy diet choices and remain as physically active as tolerates. Encouraged to contact us with any concerns or question and follow up in 2 months. Assessment & Plan (05/17/2021 6:01 PM EST): Continues on basal bolus insulin MDI, per CGM patterns there appears to be wide variability Adjusts insulin appropriately based on need and glucose patterns however there are increased needs with some meals consistently and we discussed this today We did not adjust insulin doses today but discussed strategies for dosing for more problem foods such as breakfast cereal, Winston is encouraged to continue to do his best with evaluating patterns with CGM Encouraged to continue his efforts at healthy lifestyle routines Assessment & Plan (11/12/2020 2:55 PM EDT): Doing very well on current doses of basal bolus insulin MDI, insulin requirement has and general patterns have been affected recently by oral surgery Adjusts insulin appropriately based on need and glucose patterns We did not adjust insulin doses today, Winston is encouraged to continue to do his best with evaluating patterns Monitoring blood sugars frequently, we discussed CGM technology and Winston is interested in a trial of this, he was instructed on the Freestyle Zully 2 sensor today Encouraged to continue his efforts at healthy lifestyle routines Assessment & Plan (05/14/2020 6:12 PM EST): We discussed another modest increase in Lantus insulin to help optimize FPG Winston will continue his current mealtime dosing as he experiments with increased basal insulin dosage, if his post breakfast/pre lunch blood sugars continue to be elevated then he may need to adjust his I:C ratio to 9-10 for his morning meal Winston is encouraged to continue to monitor for hypoglycemia risk with activity; since he has had less hypoglycemia this may explain the modest bump in A1c, we discussed the reasons for this Encouraged to continue efforts at [facility] lifestyle Advised to contact me with any questions or concerns, we will meet again in 6 months Assessment & Plan (11/07/2019 10:55 PM EDT): We discussed a modest increase in basal insulin dosage, 10% increase, to help improve FPG Winston is taking significantly more rapid insulin for meal coverage compared to his basal insulin dosing, it is likely that slightly higher basal insulin dosing may result in lower mealtime insulin need Winston maintains a level of activity and is encouraged to continue this, we discussed insulin dosing considerations when planning to be active We discussed possible effects of caffeine on blood sugars and also the effects of poor sleep in insulin sensitivity, Winston is advised to avoid caffeine intake after early afternoon to avoid impact on sleep Has maintained stable glucose patterns since off Metformin though his A1c is higher, he is likely at less risk for hypoglycemia particularly when active Winston is encouraged to call with any questions or concerns Assessment & Plan (05/09/2019 5:23 PM EST): Doing well on current insulin doses, we did not adjust these We discussed monitoring portions of higher carb foods such as pasta and rice, we discussed changes in I:C ratio for certain meals, may need more insulin for breakfast cereal vs meal with healthy carbs and protein Doing well off Metformin Had questions regarding timing of atorvastatin, advised to take this in the evening We do not have most recent labs to review Reports that he's up to date on foot exam, routine eye care and flu vaccination Encouraged to call with any questions or concerns Assessment & Plan (10/11/2018 5:53 PM EDT): We discussed increasing Lantus insulin to 10u once daily which will likely help optimize FPG Winston is encouraged to stop Metformin therapy, it will likely be simpler to manage his diabetes with insulin therapy alone, he may be more at risk with Metformin on board or it may not be effective to any great degree Encouraged to take mealtime insulin for all meals as consistently as possible, this should improve control of blood sugars later in the day since insulin for midday meal is currently being omitted frequently due to work schedule/duties Winston is encouraged to call me with any questions or concerns, we will reach out to him in 1-2 weeks to see how he is doing on this new regimen Assessment & Plan (04/10/2018 12:01 PM EST): We were unable to review blood sugar patterns today, Winston is encouraged to continue his current doses of insulin Advised to prebolus for breakfast when having cereal, this may help reduce the degree of postprandial spike, Winston is aware that he may also require a little more insulin for this type of meal but he should not try both adjustments at the same time Winston has been on Metformin therapy which I'm not sure he needs, he is very insulin sensitive requiring modest amounts of insulin; this sensitivity certainly may be partially due to Metformin therapy but it's also likely that Metformin may not be having any significant effect on blood sugar control; we discussed a trial of 1/2 dose of Metformin and if there is no significant change to blood sugar control he can continue to taper this until he is off this Encouraged to continue to monitor blood sugars closely and to call with any questions or concerns Encounters Date Type Department Care Team Description 10/18/2024 11:00 AM EDT Evaluation [facility] [address] [address] Keri, Elizabeth, AuD Sensorineural hearing loss, bilateral (Primary Dx) from Last 3 Months Immunizations Immunization Administration Dates Next Due COVID-19 (Pre-01/23) Moderna Vaccine, mRNA, PF 01/25/2021,07/19/2020,06/20/2020 Hepatitis B Adult 10/28/2019,06/03/2019,05/01/19 20 INFLUENZA, SPLIT VIRUS, TRIV ALENT W/ PRESERVATIVE IM 02/13/2020 Influenza Quadrivalent MDCK w/Preservative IM 02/08/2019 Influenza, Unspecified Formulation 02/01/2021 Td (adult),2 Lf Tetanus Toxo id, PF, Adsorbed 04/13/2021 Family History Medical History Relation Comments Diabetes Brother Hearing loss Brother Heart disease Father Stroke Father Diabetes Maternal Grandmother Hearing loss Maternal Grandmother Hearing loss Mother Hypothyroidism Mother Rheumatoid arthritis Mother Multiple sclerosis Paternal Aunt Hyperthyroidism Sister Relation Status Comments Brother Father Maternal Grandmother Mother Paternal Aunt Sister Social History Tobacco Use Types Packs/Day Years Used Date Smoking Tobacco: Former Cigarettes Q uit: 04/03/1999 Smokeless Tobacco: Never Tobacco Cessation:Counseling Given: Not Answered Comments:15-20 pack year history Alcohol Use Standard Drinks/Week Comments Not Currently [...] Sign Reading Time Taken Comments Blood Pressure 116/82 08/26/2024 2:09 PM EDT Pulse 51 08/26/2024 2:09 PM EDT Temperature 36.3 C (97.4 F) 08/26/2024 2:09 PM EDT Respiratory Rate 16 08/26/2024 2:09 PM EDT Oxygen Saturation 100% 08/26/2024 2:09 PM EDT Inhaled Oxygen Concentration - - Weight 61.2 kg (135 lb) 08/26/2024 2:09 PM EDT Height 172.7 cm (5' 8 ) 08/26/2024 2:09 PM EDT Body Mass Index 20.53 08/26/2024 2:09 PM EDT Plan of Treatment Upcoming Encounters Date Type Department Care Team (Late st Contact Info) Description 02/07/2025 11:00 AM EST Evaluation [facility] [place] [address] [place] [address] Elizabeth Saavedra, AuD [address] [place] [address] [email or web address] 05/29/2025 11:00 AM EST Evaluation [facility] [address] [address] Janae Perez, Uriel [address] [place] [id number] [email or web address] 05/29/2025 11:45 AM EST Office Visit [facility] [address] [address] Ayanna Iqbal MD [address] [place] [address] [place] [address] [email or web address] Health Maintenance Due Date Last Done Comments ALT LEVEL (ALANINE AMINOTRANSFERASE) 1961 DEPRESSION SCREENING 1973 HEPATITIS C SCREENING 1979 HIV ONE-TIME SCREENING (18-65 YEARS) 1979 COLOGUARD 2006 COLONOSCOPY 2006 COLORECTAL CANCER SCREENING 2006 FIT TEST 2006 FOBT 2006 SIGMOIDOSCOPY 2006 VIRTUAL COLONOSCOPY 2006 PNEUMOCOCCAL VACCINES (50+ years) (2 of 2 - PCV) 09/16/2010 09/16/2009 ZOSTER VACCINES (1 of 2) 2011 DIABETIC EYE EXAM 02/21/2017 TSH LEVEL 10/25/2019 10/24/2018 CREATININE LEVEL 06/01/2024 06/02/2023, , 10/09/2014 POTASSIUM LEVEL 06/01/2024 06/02/2023, 10/24/2018 URINE MICROALBUMIN/CREATININE RATIO 06/11/2024 06/12/2023, 02/15/2023 INFLUENZA VACCINE (#1) 2024 , 02/14/2023, 01/12/2022, Additional history exists HEMOGLOBIN A1C 01/08/2025 07/09/2024, 11/01, 11/20/2023, Additional history exists BLOOD PRESSURE 02/26/2025 08/26/2024 SMOKING Hx and SMOKELESS TOBACCO SCREENING 08/26/2025 08/26/2024 Adult Td,Tdap Booster 04/13/2031 04/13/2021, 012 RSV VACCINE Completed 03/15/2023 COVID-19 VACCINE Completed 12/28/2023, , 02/02/2022, Additional history exists HEPATITIS A VACCINES Aged Out No long er eligible based on patient's age to complete this topic HIB VACCINES Aged Out No longer eligi ble based on patient's age to complete this topic MENINGOCOCCAL VACCINES (ACWY) Aged Out No longer eligible based on patient's age to complete this topic MENINGOCOCCAL VACCINES (B) Aged Out N o longer eligible based on patient's age to complete this topic Medical Devices Implanted Type Area Fountain Vending Mechanic Device Identifier Shelf Expiration Date Model / Serial / Lot Screw Bone 1.5x4mm Ti Self Drilling [employer] - [id number] Implanted:Qty: 2 on 09/19/2023 by Ayanna Iqbal MD at [facility] STANDARD Right: Ear [employer] DEPUY SYNTHES SPINE [id number] / / Glucose Monitor Implant Cochlear 3d Ultra Dacia - [id number] Implanted:Qty: 1 on 09/19/2023 by Ayanna Iqbal MD at [facility] Right: [employer] 08/31/2026 [id number] / [id number] / [id number] Description:[employer] 3D C I [employer] MS [employer] Procedures Procedure Name Priority Date/Time Associated Diagnosis Comments AUDIOLOGY ORDERS 10/18/2024 10:5 4 AM EDT POCT HEMOGLOBIN A1C Routine 07/09/2024 7 :12 PM EDT 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 BASIC METABOLIC PANEL STAT 06/02/2023 8:45 AM EST OUTSIDE TSH LEVEL Routine 10/24/2018 from Last 3 Months or Most Recently Relevant to Health Maintenance Results * Audiology Orders (10/18/2024 10:54 AM EDT) 10/18/2024 10:5 4 AM EDT us Provider Not In System PhD AUDIOLOGY SERVICES OR DERABLES Final Result DR VASQUEZ AUD * (ABNORMAL) POCT Hemoglobin A1c (07/09/2024 7:12 PM EDT) Hemoglobin A1c 7.1(A) 4.2 - 5.6 % [employer] [facility] Other 07/09/2024 7:12 PM EDT Mónica Mancini CNP POINT OF CARE TEST ORDERABLES Final Result [employer] [facility] [address] [place] [address], [facility] * (ABNORMAL) Basic metabolic panel (06/02/2023 8:45 AM EST) SODIUM 136 135 - 145 mmol/L [facility] CHLORIDE 100 100 - 108 mmol/L [facility] POTASSIUM 5.0 3.5 - 5.0 mmol/L [facility] CO2 25 23.0 - 31.9 mmol/L [facility] BUN 31(H) 8 - 25 mg/dL [facility] CREATININE 1.34 0.6 - 1.5 mg/dL [facility] GLUCOSE 169(H) 70 - 110 mg/dL [facility] CALCIUM 9.3 8.5 - 10.0 mg/dL [facility] EGFR 60 >59 mL/min/1. 73m2 [facility] Comment:Estimated glomerular filtration rate calculated using the CKD-EPI refit equation. ANION GAP 11 3 - 15 mmol/L [facility] Blood 06/02/2023 8:45 AM EST 06/02/2023 8:51 AM EST us Lewis Iverson MD LAB BLOOD ORDERABLES Final Result [address] * Outside TSH Level (10/24/2018) TSH - External 1.48 0.5 - 5 uIU/L us Historical Provider LAB BLOOD ORDERABLES Amaris l Result from Last 3 Months or Most Recently Relevant to Health Maintenance Insurance [facility] [address] [place] [address] [place] [address] [place] [address] [place] [address] [address] [place] [address] C3 ACO [facility] C3 ACO [facility] C3 ACO Advance Directives For more information, please contact: [phone] (9AM - 5PM [facility], Monday-Monday) Documents on File Type Date Recorded Patient Singer Songwriter Expl anation Legal Guardianship 09/22/2023 10:44 AM Gra nted Care Teams Centrifugal Station Operator Relationship Specialty Start Date End Date Karolina Rivas CNP [address] [place] [address] [email or web address] PCP - General Nurse Practitioner 09/14/23 Shantell Blackman MD [address] [place] [address], [address] [place] [address] Historical LMR Provider 01/18/17 Additional Source Comments The information contained in this document represents components of the legal health record. It is not the complete legal health record.[facility]
--- OUTSIDE RECORDS SUMMARY | 2024-12-16 21:17 | XMS_ITS | Encounter Summary ---
Author Organization [employer] Address [address] [facility] [address] 7t [place] [address] Care Team Providers Care Business Services Specialist Sales Name Role Phone Karolina Rivas CNP Primary Care Provider [phone] Ebonie Spears Unavailable Ebonie Spears Unavailable Encounter Details Date Type Department Care Team (Late st Contact Info) Description 10/21/2024 Orders Only [facility] [address] [place], [place] [phone] Karolina Rivas CNP [address] [place] [address] Social History Tobacco Use Types Packs/Day Years [...] Description 03/05/2025 3:00 PM EST Office Visit [facility] [address] [place] [address] Karolina Rivas CNP [address] [place] [address] documented as of this encounter Procedures Procedure Name Priority Date/Time Associated Diagnosis Comments CT ABDOMEN PELVIS W CONTRAST Routine 10/20/2024 9:41 AM EDT ECG 12-LEAD Routine 10/20/2024 9:[address] CHEST WO CONTRAST Routine 09/09/2024 4:15 PM EDT PULMONARY FUNCTION TESTING Routine 08/15/2024 4:14 PM EDT documented in this encounter Results * CT Abdomen Pelvis w/ Contrast (10/20/2024 9:41 AM EDT) Anatomical Region Laterality Modality Body, Pelvis, Abdomen Computed T omography us Karolina Rivas RESIDENTIAL ENERGY AUDITOR IMG CT PROCEDURES Final Resul t * ECG 12 lead (10/20/2024 9:40 AM EDT) us Karolina Rivas RESIDENTIAL ENERGY AUDITOR ECG ORDERABLES Final Result * CT Chest w/o Contrast (09/09/2024 4:15 PM EDT) Anatomical Region Laterality Modality Body, Chest Computed Tomogra phy Karolina Rivas RESIDENTIAL ENERGY AUDITOR IMG CT PROCEDURES Final Resul t * Pulmonary function testing (08/15/2024 4:14 PM EDT) Karolina Rivas RESIDENTIAL ENERGY AUDITOR PFT ORDERABLES Final Result documented in this encounter Visit Diagnoses Not on filedocumented in this encounter Additional Health Concerns Assessment Noted Time PHQ-9 Depression Total Score: 4 08/29/19 11:49 AM EDT documented as of this encounter Care Teams Business Services Specialist Sales Relationship Specialty Start Date End Date Karolina Rivas CNP [address] [place] [address] PCP - General Family Medicine 04/28/22 Ebonie Spears 10/22/24 10/28/24 Ebonie Spears 12/13/24 documented as of this encounter
--- OUTSIDE RECORDS SUMMARY | 2024-12-16 21:17 | XMS_ITS ---
Author Organization [employer] Address [address] [facility] 7t [place] [address] Care Team Providers Care Shuttle Operator Name Role Phone Karolina Rivas CNP Primary Care Provider [phone] Ebonie Spears CM Complex Status:Outreach In Progress (Enrolling) Start date:12/13/2024 Enrollment reason:ADT Feed Case Team Name Relationship Phone Ebonie Spears(Responsible Staff) [phone] Continued Care and Services Coordination
--- OUTSIDE RECORDS SUMMARY | 2024-12-16 21:17 | XMS_ITS | Encounter Summary ---
Author Organization [employer] Address [address] [facility] 7t [place] [address] Care Team Providers Care Automatic Riveting Machine Operator Name Role Phone Karolina Rivas CNP Primary Care Provider [phone] Selwyn NobleSW Unavailable Unavail able Cate Copeland RN Unavailable [phone] Ebonie Spears Unavailable Cherie Spearsn Unavailable Encounter Details Date Type Department Care Team (Late st Contact Info) Description 07/13/2022 Orders Only [facility] [address] [place] [address] Karolina Rivas CNP [address] [place] [address] Social History Tobacco Use Types Packs/Day Years [...] PM EDT documented as of this encounter Functional Status * Over the past 2 weeks, how often have you been bothered by any of the following problems? Question Answer Date of Assessment Author Little interest or pleasure in doing things Not at all 07/14/2022 2:08 PM EDT Monique Thompson C MA Feeling down, depressed, or hopeless Not at all 07/14/2022 2:08 PM EDT Monique Thompson C MA Patient Health Questionnaire -2 Score 0 07/14/2022 2:08 PM EDT Monique Thompson C [place] documented as of this encounter Plan of Treatment Upcoming Encounters Date Type Department Care Team (Late st Contact Info) Description 03/05/2025 3:00 PM EST Office Visit [facility] MED[facility] [address] [place] [address] Karolina Rivas CNP [address] [place] [address] documented as of this encounter Visit Diagnoses Not on filedocumented in this encounter Care Teams Automatic Riveting Machine Operator Relationship Specialty Start Date End Date Karolina Rivas CNP [address] [facility] [place] [address] PCP - General Family Medicine 04/28/22 Selwyn Noble, [facility] Community Health Worker Case Management 09/16/22 10/26/22 Cate Copeland, RN Registered Nurse Case Management 09/23/22 11/25/22 Ebonie Spears 10/22/24 10/28/24 Ebonie Spears 12/13/24 documented as of this encounter
--- OUTSIDE RECORDS SUMMARY | 2024-12-16 21:17 | XMS_ITS | Encounter Summary ---
Author Organization [facility] Address [address] [facility] [address] [place] [address] Phone Care Team Providers Care Belt Worker Name Role Phone Mona Mulligan MD Primary Care Provider [phone] Mona Mulligan MD Unavailable [phone] Cheyanne Taylor DISABILITY AIDE Unavailable Unavailable Sydni Saez DISABILITY AIDE Unavailable [phone] Duane Adams MD Unavailable Shantell Blackman MD Unavailable [phone] Marium Duque LDN Unavailable Biju Brennan MD Unavailable [phone] Karolina Rivas SENIOR MOBILE WEB DEVELOPER Primary Care Provider [phone] Encounter Details Date Type Department Care Team (Latest Contact Info) Description 12/23/2015 Transcribe Orders [facility] Otology Main [address] [address] Ayanna Iqbal MD [address] [place] [address] [place] [address] [email or web address] SNHL (sensorineural hearing loss) (Primary Dx) Social History Tobacco Use Types Packs/Day Years Used Date Smoking Tobacco: Never Sex and Gender Information Value Date Recorded Sex Assigned at Not on file Legal Sex Male 1:42 PM EDT Gender Identity Not on file Sexual Orientation Not on file documented as of this encounter Plan of Treatment Upcoming Encounters Date Type Department Care Team (Late st Contact Info) Description 02/07/2025 11:00 AM EST Evaluation [facility] AUDIOLOGY [address] [address] Elizabeth Saavedra, AuD [address] [place] [address] [email or web address] 05/29/2025 11:00 AM EST Evaluation [facility] Audiology [address] [address] Janae Perez, Uriel [address] [place] [address] [email or web address] 05/29/2025 11:45 AM EST Office Visit [facility] Otology [address] [address] Ayanna Iqbal MD [address] [place] [address] [place] [address] [email or web address] Scheduled Orders Name Type Priority Associated Diagnoses Orde r Schedule Comprehensive hearing test Audiology Routine SNHL (sensorineural hearing loss) 1 Occurrences starting 12/23/2015 until 12/22/2016 documented as of this encounter Visit Diagnoses Diagnosis SNHL (sensorineural hearing loss)- Primary Unspecified sensorineural hearing loss documented in this encounter Care Teams Belt Worker Relationship Specialty Start Date End Date Mona Mulligan MD [address] [place] [address] PCP - General Internal Medicine 01/18/16 09/13/23 Karolina Rivas, SENIOR MOBILE WEB DEVELOPER [address] [place] [address] [email or web address] PCP - General Nurse Practitioner 09/14/23 Mona Mulligan MD [address] [place] [address] [email or web address] Historical LMR Provider 01/18/17 04/10/21 Cheyanne Taylor, DISABILITY AIDE [address] [place] [address] Historical LMR Provider 01/18/1704/10 Sydni Saez, ABRAHAN [address] [place] [address] Historical LMR Provider 01/18/17 Duane [place] MD [address] [address] [email or web address] Historical LMR Provider 01/18/17 04/10/21 Shantell Blackman MD [address] [facility], 1st [place] [address] [email or web address] Historical LMR Provider 01/18/17 Marium Duque LDN [address] [place] [address] [email or web address] Historical LMR Provider 01/18/17 04/10/21 Biju Brennan MD [address] [address] [email or web address] Historical LMR Provider 01/18/17 04/10/21 documented as of this encounter Additional Source Comments The information contained in this document represents components of the legal health record. It is not the complete legal health record.[facility]
--- OUTSIDE RECORDS SUMMARY | 2024-12-16 21:17 | XMS_ITS | Encounter Summary ---
Author Organization [employer] Address [address] [facility] [address] 7[address] [place] [address] Care Team Providers Care Jewel Staker Name Role Phone Karolina Rivas CNP Primary Care Provider [phone] Ebonie Spears Unavailable Ebonie Spears Unavailable Encounter Details Date Type Department Care Team (Late st Contact Info) Description 10/26/2024 Orders Only [facility] [address] [place], [place] [phone] Karolina Rivas CNP [address] [place] [address] Social History Tobacco Use Types Packs/Day Years [...] Description 03/05/2025 3:00 PM EST Office Visit [facility] [address] [place] [address] Karolina Rivas CNP [address] [place] [address] documented as of this encounter Procedures Procedure Name Priority Date/Time Associated Diagnosis Comments TRANSTHORACIC ECHO (TTE) COMPLETE Routine 10/16/2024 8:56 AM EDT COMPREHENSIVE METABOLIC PANEL Routine 09/25/2024 8:55 AM EDT documented in this encounter Results * Transthoracic echo (TTE) complete (10/16/2024 8:56 AM EDT) Karolina Rivas CNP CV ECHO PROCEDURES Final Resu lt * Comprehensive Metabolic Panel (09/25/2024 8:55 AM EDT) Blood Venous blood specimen / Unknown Karolina Rivas CNP LAB BLOOD ORDERABLES Final Re sult documented in this encounter Visit Diagnoses Not on filedocumented in this encounter Additional Health Concerns Assessment Noted Time PHQ-9 Depression Total Score: 4 08/29/19 11:49 AM EDT documented as of this encounter Care Teams Jewel Staker Relationship Specialty Start Date End Date Karolina Rivas CNP [address] [place] [address] PCP - General Family Medicine 04/28/22 Ebonie Spears 10/22/24 10/28/24 Ebonie Spears 12/13/24 documented as of this encounter
--- OUTSIDE RECORDS SUMMARY | 2024-12-16 21:17 | XMS_ITS | Clinical Summary ---
Author Organization [facility] Address [address] [address] Phone Care Team Providers Care Conveyor Weigher Operator Name Role Phone Pam Rob MD Primary Care Provider [phone] Allergies Active Allergy Reactions Criticality Noted Date Comments Lisinopril Low 04/28/2022 Other reaction(s): hyperkalemia Medications amantadine (SYMMETREL) 100 MG capsule Take [...] 1 (one) time each day 12/07/2023 Active amLODIPine (NORVASC) 5 MG tablet Take 5 mg by mouth in the morning. 10/09/2014 Active sacubitril-valsa rtan (Entresto) 97-103 MG per tablet Take 1 tablet by mouth in the morning and 1 tablet in the evening. 06/17/2022 Active mirtazapine (REMERON) 7.5 MG tablet Take 7.5 mg by mouth 10/17/2024 01/16/20 Active furosemide (Lasix) 20 MG tablet Take 10 mg by mouth 09/25/2024 Active Active Problems Problem Noted Date Diagnosed Date Chronic systolic congestive heart failure 2022 Acute nontraumatic kidney injury 02/15/2023 Benign hypertension 08/18/2021 Essential hypertension 08/18/2021 Hyperkalemia 08/18/2021 Obstructive hypertrophic cardiomyopathy 08/19/19 22 Encounters Date Type Department Care Team Description 11/06/2024 4:15 PM EDT [facility] Visit [facility] [address] [phone] Lalit Keyes MD Stage 3 chronic kidney disease, not otherwise specified (HCC) (Primary Dx); Heart failure with reduced ejection fraction (HCC); Hypertension; Chronic systolic congestive heart failure (HCC); Hypo-osmolality and hyponatremia from Last 3 Months Family History Medical [...] Sign Reading Time Taken Comments Blood Pressure 103/52 11/06/2024 4:26 PM EDT Pulse 52 11/06/2024 4:26 PM EDT Temperature - - Respiratory Rate - - [...] Care Team (Late st Contact Info) Description 05/07/2025 1:45 PM EST Office Visit [facility] [address] [place] [address] Lalit Keyes MD [address] [address] Health Maintenance Due Date Last Done Comments Colorectal Cancer Screening: Annual FOBT 2010 Colorectal Cancer Screening: Colonoscopy 2010 Colorectal Cancer Screening: Sigmoidoscopy 2010 Diabetes: Ophthalmology Exam 08/18/2021 Diabetes: Pedal Pulse Checked 08/18/2021 Diabetes: Sensory Foot Exam 08/18/2021 Diabetes: Visual Foot Exam 08/18/2021 Influenza Vaccine (#1) 2024 4, 02/14/2023, 01/12/2022, Additional history exists Diabetes: Hemoglobin A1C 02/13/2025 025, 07/09/2024, 11/20/2023, Additional history exists Pneumococcal Vaccine: 50+ Years (2 of 2 - PCV) 11/13/2025 11/13/2024, 09/16/2009 Hepatitis B Vaccine Aged Out 10/28/2019, 06/03/2019, 05/01/2019 No longer eligible based on patient's age to complete this topic Pneumococcal Vaccine: Peds (0 to 5 Years) and At-Risk Patients (6 to 49 Years) Discontinued 11/13/2024, 09/16/2009 Procedures Procedure Name Priority Date/Time Associated Diagnosis Comments SODIUM, URINE, RANDOM Routine 11/11/2024 2:46 PM EDT Stage 3 chronic kidney disease, not otherwise specified (HCC) Hypo-osmolality and hyponatremia OSMOLALITY (SERUM) Routine 11/11/2024 2: 46 PM EDT Stage 3 chronic kidney disease, not otherwise specified (HCC) Hypo-osmolality and hyponatremia OSMOLALITY, URINE Routine 11/11/2024 2:4 6 PM EDT Stage 3 chronic kidney disease, not otherwise specified (HCC) Hypo-osmolality and hyponatremia RENAL FUNCTION PANEL Routine 11/11/2024 2:33 PM EDT Stage 3 chronic kidney disease, not otherwise specified (HCC) HEMOGLOBIN A1C Routine 02/15/2023 10:05 AM EST from Last 3 Months or Most Recently Relevant to Health Maintenance Results * Urine, sodium,random (11/11/2024 2:46 PM EDT) Sodium, 24H Ur 72 Not Estab. mmol/L [facility] Urine Urine specimen obtained by clean catch procedure / Unknown 11/11/2024 2:46 PM EDT 11/11/2024 Lalit Keyes MD LAB URINE ORDERABLES Final [facility]ul t [facility] [address] [place] [phone] * Urine Osmolality (11/11/2024 2:46 PM EDT) Osmolality, Ur 678 mOsmol/kg [facility] Comment: 24 hr : 300 - 900 Random: 50 - 1400 After 12hr fluid restriction: >850 Urine Urine specimen obtained by clean catch procedure / Unknown 11/11/2024 2:46 PM EDT 11/11/2024 Lalit Keyes MD LAB URINE ORDERABLES Final Resul t Performing Organization Address City/[facility]/ZIP Co de Phone Number [facility] [address] [place] [address] * Osmolality (11/11/2024 2:46 PM EDT) Osmolality Calc 280 280 - 301 mOsmol/kg [facility] Blood Venous blood / Unknown 11/11/2024 2:46 PM EDT 11/11/2024 Lalit Keyes MD LAB BLOOD ORDERABLES Final Resul t Performing Organization Address City/[facility] Co de Phone Number [facility] [address] [place] [address] * (ABNORMAL) Renal funtion panel (11/11/2024 2:33 PM EDT) Glucose 151(H) 70 - 99 mg/dL [facility] BUN 30(H) 8 - 27 mg/dL [facility] Creatinine 1.04 0.76 - 1.27 mg/dL [facility] eGFR CKD-EPI CR 2020 81 >59 mL/min/1.7 3 [facility] BUN/Creatinine Ratio 29(H) 10 - 24 [facility] Sodium 132(L) 134 - 144 mmol/L [facility] Potassium 4.5 3.5 - 5.2 mmol/L [facility] Chloride 99 96 - 106 mmol/L [facility] Bicarbonate (CO2) 17(L) 20 - 29 mmol/L [facility] Calcium 9.2 8.6 - 10.2 mg/dL [facility] Phosphorus 3.7 2.8 - 4.1 mg/dL [facility] Albumin 3.6(L) 3.9 - 4.9 g/dL [facility] Blood Venous blood / Unknown 11/11/2024 2:33 PM EDT 11/11/2024 Lalit Keyes MD LAB BLOOD ORDERABLES Final Resul t [facility] [address] [place] [phone] * (ABNORMAL) Hemoglobin A1c (02/15/2023 10:05 AM EST) Hemoglobin A1C 7.6(H) (4.0-5.6) % [facility] Comment: MONITORING: In known diabetic patients, hemoglobin A1c targets should be discussed with health care provider. DIAGNOSTIC USE: The [place] [employer] (ADA) and the World Health [...] Supplement 1 Testing performed or reported by [facility], a Service of [facility], [address] [place] [address] Camron Carter MD, Instrumentation Fitter [facility]# [id number] 02/15/2023 10:0 5 AM EST 02/15/2023 10:11 AM EST Torsten Reeves MD LAB BLOOD ORDERABLES Final Re sult [facility] from Last 3 Months or Most Recently Relevant to Health Maintenance Insurance Medicaid [place] Medicaid [place] Care Teams Conveyor Weigher Operator Relationship Specialty Start Date End Date Pam Rob MD [address] [place] [address] PCP - General 04/13/20
--- OUTSIDE RECORDS SUMMARY | 2024-12-16 21:17 | XMS_ITS | Encounter Summary ---
Author Organization [facility] Address [address] [facility] [address] [place] [address] Phone Care Team Providers Care Medicare Biller Name Role Phone Mona Mulligan MD Primary Care Provider [phone] Shantell Blackman MD Unavailable [phone] Karolina Rivas CNP Primary Care Provider [phone] Encounter Details Date Type Department Care Team (Late st Contact Info) Description 06/02/2023 Procedure Pass [facility] DEPT [address] [place] [address] Social History Tobacco Use Types Packs/Day Years [...] Info) Description 02/07/2025 11:00 AM EST Evaluation [facility] AUDIOLOGY [place] [address] [place] [address] Elizabeth Saavedra, AuD [address] [place] [address] [email or web address] 05/29/2025 11:00 AM EST Evaluation [facility] Audiology [address] [address] Janae Perez, AuD [address] [place] [address] [email or web address] 05/29/2025 11:45 AM EST Office Visit [facility] Otology [address] [address] Ayanna Iqbal MD [address] [place] [address] [place] [address] [email or web address] documented as of this encounter Visit Diagnoses Not on filedocumented in this encounter Care Teams Medicare Biller Relationship Specialty Start Date End Date Mona Mulligan MD [address] [place] [address] PCP - General Internal Medicine 01/18/16 09/13/23 Karolina Rivas CNP [address] [place] [address] [email or web address] PCP - General Nurse Practitioner 09/14/23 Shantell Blackman MD 22 [facility], [address] [place] [address] [email or web address] Historical LMR Provider 01/18/17 documented as of this encounter Additional Source Comments The information contained in this document represents components of the legal health record. It is not the complete legal health record.[facility]
--- OUTSIDE RECORDS SUMMARY | 2024-12-16 21:17 | XMS_ITS | Clinical Summary ---
Author Organization [employer] Address [address] [place] [address] Care Team Providers Care Video Poker Floorman Name Role Phone Karolina Rivas PIO Primary Care Provider [phone] Ebonie Spears Unavailable Allergies Active Allergy Reactions Criticality Noted Date Comments Lisinopril Low 04/28/2022 Other reaction(s): hyperkalemia Medications Thiamine HCl (VITAMIN B-1 PO) Act donn Continuous Blood Gluc Wringer And Setter (FreeStyle Zully 2 [place]) device 05/05/19 23 Active sacubitril-valsa rtan (Entresto) 97-103 MG tablet Take 1 tablet by mouth. 06/18/19 23 Active glucose blood (FREESTYLE LITE) test strip 01/30/20 21 Active insulin aspart (NovoLOG) 100 UNIT/ML pen 04/20/19 23 Active insulin glargine (Lantus SoloStar) 100 UNIT/ML penIndications:T ype 1 diabetes mellitus with other kidney complication (CMS/HCC) Inject 12 Units under the skin at bedtime. 15 mL 11/07/19 24 Active insulin pen needle (BD Pen Needle Ginger 2nd Gen) 32G x 4 mm misc USE DIRECTED UP TO 5 TIMES PER DAY SUBCUTANEOU SLY. 450 each 2 06/18/19 25 Active amantadine (Symmetrel) 100 MG tablet TAKE ONE TABLET BY MOUTH ONCE DAILY for 90 90 tablet 3 07/26/19 25 Active amiodarone (Pacerone) 200 MG tablet Take 1 tablet (200 mg) by mouth Once per day. 90 tablet 3 07/26/19 25 Active metoprolol succinate XL (Toprol-XL) 25 MG 24 hr tablet Take 1 tablet (25 mg) by mouth Once per day. 90 tablet 3 07/26/19 25 Active folic acid (Folvite) 1 MG tablet Take 1 tablet (1 mg) by mouth Once per day. 90 tablet 3 07/26/19 25 Active spironolactone (Aldactone) 25 MG tablet Take 12.5 mg by mouth. 12/07/19 24 Active furosemide (Lasix) 20 MG tablet Take 20 mg by mouth. 09/26/19 25 Active cholecalciferol (Vitamin D-3) 25 MCG (1000 UT) tablet Take 1 tablet (25 mcg) by mouth Once per day. 90 tablet 3 10/18/19 25 Active ferrous sulfate (Fe Tabs) 325 (65 Fe) MG EC tablet Take 1 tablet (325 mg) by mouth with breakfast. Do not crush, chew, or split. 90 tablet 3 10/18/19 25 026 Active mirtazapine (Remeron) 7.5 MG tablet Take 1 tablet (7.5 mg) by mouth at bedtime. 90 tablet 1 10/18/19 25 025 Active rivaroxaban (Xarelto) 20 MG tabletIndication s:Paroxysmal atrial fibrillation (CMS/HCC) Take 1 tablet (20 mg) by mouth with evening meal. 30 tablet 5 10/18/19 25 Active docusate sodium (Colace) 100 MG capsuleIndicatio ns:Slow transit constipation Take 1 capsule (100 mg) by mouth 2 times daily. 180 capsule 1 11/23/19 25 Active sennosides (Senokot) 8.6 MG tabletIndication s:Slow transit constipation Take 1 tablet (8.6 mg) by mouth 2 times daily. 180 tablet 1 11/23/19 25 Active Nutritional Supplements (Glucerna Shake) liquid Take 237 mL by mouth in the morning and 237 mL in the evening. [address]79 mL 11 10/19/19 25 025 docusate sodium (Colace) 100 MG capsule Take 100 mg by mouth 2 times daily. 025 Discontinued(Re order (will not trigger notification to Pharmacy)) sennosides (Senokot) 8.6 MG tablet Take 1 tablet by mouth Once per day. 025 Discontinued(Re order (will not trigger notification to Pharmacy)) Active Problems Problem Noted Date Diagnosed Date [...] to discuss with PCP and visit with spinner tender. Fatigue 05/04/2022 Hearing loss 05/04/2022 Heart failure [...] Continue to monitor. Obstructive hypertrophic cardiomyopathy 04/10/19 Overview (05/04/2022): Last Assessment & Plan: Followed [...] 04/10/2018 Overview (07/14/2022): Last Assessment & Plan: Nicoláss glycemic control is fairly good in [...] Encounters Date Type Department Care Team Description 12/13/[address] [address] Karolina Rivas CNP VNA; hospital admission, obtain hospital records 12/13/2024 [facility] Department [address] [place] [phone] Ebonie Spears 11/22/[address] [address] Karolina Rivas CNP Slow transit constipation (Primary Dx) 11/22/[address] [address] Karolina Rivas CNP Loose stools (Primary Dx) 11/17/2024 Orders Only [facility] [address] [place] [address] Karolina Rivas CNP 11/13/2024 12:00 PM EDT Office Visit [address] [address] Karolina Rivas CNP Health maintenance examination (Primary Dx); Essential hypertension; Mixed hyperlipidemia; Heart failure with reduced ejection fraction (CMS/HCC); Paroxysmal atrial fibrillation ([facility]/HCC); Anoxic brain injury ([facility]/HCC); Type 1 diabetes mellitus with stage 3a chronic kidney disease (CMS/HCC); Type 1 diabetes mellitus with diabetic microalbuminuria ([facility]/HCC); Weight loss; Immunization due; Obstructive hypertrophic cardiomyopathy (CMS/HCC); Slow transit constipation; Physical deconditioning; Vitamin D deficiency; Impacted cerumen of left ear; Dietary counseling; Exercise counseling 10/28/2024 [facility] () Department [address] [place] [phone] Ebonie Spears c3 care management (Notification of Closed RN Care Management //C3 Member Juan Garcia 1960 has closed services as Declined to participate in program. /Member transferred to Other:declined//wellness program manager: Ebonie Spears) 10/26/2024 Orders Only [facility] [address] [place] [address] Karolina Rivas CNP 10/23/2024 Orders Only [facility] [address] [place] [address] Karolina Rivas CNP 10/22/2024 Patient Outreach [facility] ([facility] Department [address] [place] [phone] Ebonie Spears 10/22/2024 Patient [facility] () Department [address] [place] [phone] Ebonie Spears 10/21/2024 Orders Only [facility] [address] [place] [address] Karolina Rivas CNP 10/21/[address] [address] Karolina Rivas CNP hosp FU, impaction 10/18/2024 Results Follow-Up [address] [address] Karolina Rivas CNP CBC auto differential, HIV p24 Antigen/Antibody With Reflex to Confirmation [id number], Hepatitis C Virus (HCV) Antibody Cunningham to Quantitative PCR and Genotyping, Additional followed-up results: 3 10/17/2024 11:00 AM EDT Office Visit [address] [address] Karolina Rivas CNP Iron deficiency anemia secondary to inadequate dietary iron intake (Primary Dx); Vitamin D deficiency; Physical deconditioning; Weight loss; Fatigue, unspecified type; Loose stools; Paroxysmal atrial fibrillation (CMS/HCC); Type 1 diabetes mellitus with other kidney complication (CMS/HCC); Anoxic brain injury (CMS/HCC) 10/17/[address] [address] Karolina Rivas CNP 10/17/2024 Refill [facility] [address] [place] [address] Kraolina Rivas CNP Paroxysmal atrial fibrillation ([facility]/HCC) 10/17/2024 Travel 10/10/2024 Telephone [facility] [address] [place] [address] Karolina Rivas CNP multiple concerns, care coordination; Appointment Request from Last 3 Months Immunizations Immunization Administration Dates Next Due Hep B, adult 10/28/2019,06/03/2019,05/01/2019 INFLUENZA INJECTABLE QUADRIV ALANT CCIIV4 MDCK Multi-dose vial 02/08/2019 Influenza Injectable Quadriv alant Preservative Free IIV4 MDCK 02/14/2023 Influenza injectable quadriv alent preservative free 01/12/2022 Influenza, IIV3, injectable 02/01/2021,1 04/14/2019,03/06/2018,02/21,02/15/2016,02/18/2015,02/18/2014 ,03/05/2013 Influenza, Injectable, MDCK, preservative free 12/28/2023 Influenza, Split (incl. francesco fied surface antigen) 03/07/2012,02/15/2011,03/17/2010 Influenza, Unspecified 02/01/2021 Moderna Covid-19 Vaccine 12+ 02/14/2023, 01/25/2021,07/19/2020,06/20 Moderna Covid-19 Vaccine 6+ Bivalent 02/02/2022 Novel [id number], all formulations 03/19/2009 Pneumococcal Conjugate PCV 21 11/13/2024 Pneumococcal Polysaccharide PPSV23 09/16/2009 RSV Adjuvant 03/15/2023 [...] is your housing situation today? I have ronbogdan cline 08/28/[address] you [...] Sign Reading Time Taken Comments Blood Pressure 95/65 11/13/2024 11:54 AM EDT Pulse 50 11/13/2024 11:54 AM EDT Temperature 36.2 C (97.1 F) 11/13/2024 11:54 AM EDT Respiratory Rate 16 07/19/2023 2:36 PM EDT Oxygen Saturation 99% 11/13/2024 11:54 AM EDT Inhaled Oxygen Concentration - - Weight 47.6 kg (105 lb) 11/13/2024 11:54 AM EDT Height 172.7 cm (5' 8 ) 11/13/2024 11:54 AM EDT Body Mass Index 15.97 11/13/2024 11:54 AM EDT Plan of Treatment Upcoming Encounters Date Type Department Care Team (Late st Contact Info) Description 03/05/2025 3:00 PM EST Office Visit [facility] [address] [place] [address] Karolina Rivas, CAR STEREO INSTALLER [address] [place] [address] Health Maintenance Due Date Last Done Comments CT Colonography 1961 FIT DNA/Cologuard 1961 FIT 1961 FOBT 1960 Sigmoidoscopy 1961 Eye Exam 1971 Hepatitis A Vaccines (1 of 2 - Risk 2-dose series) 1980 Zoster Vaccines (1 of 2) 2011 Colonoscopy 01/01/2022 01/02/2012, 01/02/2012 Colorectal Cancer Screening 01/01/2022 Lipid Panel 07/16/2023 07/15/2022, 04/03, 04/21/2021, Additional history exists Dental Oral Exam 12/31/2023 06/29/2023, , 05/04/2022, Additional history exists Dental Prophylaxis 12/31/2023 06/29/2023, 0 10/21/2022, 05/04/2022, Additional history exists Dental X-Ray: Bitewings 06/29/2024 06/29/19 24, 05/04/2022, 02/26/2021, Additional history exists Diabetes: Foot Exam 07/18/2024 07/19/2023, 07/19/2023, 07/19/2023, Additional history exists Influenza Vaccine (#1) 2024 , 02/14/2023, 01/12/2022, Additional history exists Diabetes: Hemoglobin A1C 02/13/2025 025, 11/20/2023, 06/12/2023, Additional history exists Alcohol/Substance Use Screening 08/28/2025 08/28/2024 Depression Screening 08/28/2025 08/28/2024, 08/29/19 Disability Screening 08/28/2025 08/28/2024 SDOH Screening 08/28/2025 08/28/2024 Tobacco Screening 11/13/2025 11/13/2024 Dental X-Ray: Full Mouth 06/29/2026 024, 01/22/2020, 04/18/2013, Additional history exists DTaP/Tdap/Td Vaccines (3 - Td or Tdap) 04/13/2031 04/13/2021, 09/23/2011, 05/18/2004 Hepatitis B Vaccines Completed 10/28/2019, 06/03/2019, 05/01/2019 RSV Patients and Patients Aged 60 years or older Completed 03/15/2023 COVID-19 Vaccine Completed 09/11/2024, , 02/14/2023, Additional history exists HIV Screening Completed 10/17/2024, 08/28/2015 Hepatitis C Screening Completed 10/17/2024 Pneumococcal Vaccine: 50+ Years Completed 11/13/2024, 09/16/2009 HIB Vaccines Aged Out No longer eligi ble based on patient's age to complete this topic HPV Vaccines Aged Out No longer eligi ble based on patient's age to complete this topic IPV Vaccines Aged Out No longer eligi ble based on patient's age to complete this topic Meningococcal B Vaccine Aged Out No l onger eligible based on patient's age to complete [...] Date/Time Associated Diagnosis Comments AMB REFERRAL TO PULMONOLOGY Routine 11/25/2024 Abnormal PFT NV REMOVAL IMPACTED CERUMEN IRRIGATION/LVG UNILAT Routine 11/13/2024 1:02 PM EDT Health maintenance examination POCT GLYCOSYLATED HEMOGLOBIN (HGB A1C) Routine 11/13/2024 12:15 PM EDT Type 1 diabetes mellitus with diabetic microalbuminuria (CMS/HCC) AMB REFERRAL TO NEPHROLOGY Routine 11/06/2024 Chronic kidney disease, stage 3 unspecified (CMS/HCC) CBC Routine 10/29/2024 12:10 PM EDT XR ABDOMEN AP Routine 10/29/2024 12:09 PM EDT AMB REFERRAL TO GASTROENTEROLOGY Routine 10/29/2024 Weight loss COMPREHENSIVE METABOLIC PANEL Routine 10/20/2024 9:[address] ABDOMEN PELVIS W CONTRAST Routine 10/20/2024 9:41 AM EDT ECG 12-LEAD Routine 10/20/2024 9:40 AM EDT INTERPRETATION HEP C AB (NON ORDERABLE) Routine 10/17/2024 11:55 AM EDT IGM Routine 10/17/2024 11:55 AM EDT PROTEIN, TOTAL AND PROTEIN ELECTROPHORESIS Routine 10/17/2024 11:55 AM EDT SED RATE BY MODIFIED WESTERGREN Routine 10/17/2024 11:55 AM EDT Weight loss Fatigue, unspecified type HEPATITIS C VIRUS (HCV) AB CASCADE TO QNT PCR & GENOTYP Routine 10/17/2024 11:55 AM EDT Weight loss Fatigue, unspecified type HIV P24 ANTIGEN/ANTIBODY WITH REFLEX TO CONFIRMATION Routine 10/17/2024 11:55 AM EDT Weight loss Fatigue, unspecified type CBC WITH AUTO DIFFERENTIAL Routine 10/17/2024 11:55 AM EDT Iron deficiency anemia secondary to inadequate dietary iron intake Weight loss Fatigue, unspecified type TRANSTHORACIC ECHO (TTE) COMPLETE Routine 10/16/2024 8:56 AM EDT COMPREHENSIVE METABOLIC PANEL Routine 09/25/2024 8:55 AM EDT Full PROPHYLAXIS - ADULT Routine 06/29/2023 2:00 PM EDT INTRAORAL - COMPLETE SERIES OF RADIOGRAPHIC IMAGES Routine 06/29/2023 2:00 PM EDT PERIODIC ORAL EVALUATION - ESTABLISHED PATIENT Routine 06/29/2023 2:00 PM EDT LIPID PANEL, STANDARD Routine 07/15/2022 9:12 AM EDT Essential hypertension Uncontrolled type 1 diabetes mellitus with hyperglycemia (CMS/HCC) Mixed hyperlipidemia HM COLONOSCOPY Routine 01/02/2012 from Last 3 Months or Most Recently Relevant to Health Maintenance Results * Referral to Pulmonology (11/25/2024) Karolina Rivas CNP OUTPATIENT REFERRAL ORDERABLE S Final Result * NV REMOVAL IMPACTED CERUMEN IRRIGATION/LVG UNILAT (11/13/2024 1:02 PM EDT) Narrative Karolina Rivas CNP - 11/13/2024 1:02 PM EDT Karolina Rivas CNP 11/13/2024 1:49 PM Ear Cerumen Removal Date/Time: 11/13/2024 1:02 PM Performed by: Boris Mcclure Authorized by: Karolina Rivas CNP Consent: Consent obtained: Verbal Consent given by: Patient and guardian Risks, benefits, and alternatives were discussed: yes Risks discussed: Pain, dizziness and infection [place] protocol: Procedure explained and questions answered to patient or proxy's satisfaction: yes Relevant documents present and verified: no Test results available: no Imaging studies available: no Required blood products, implants, devices, and special equipment available: no Site/side marked: no Immediately prior to procedure, a time out was called: no Patient identity confirmed: Verbally with patient Procedure details: Location: L ear Procedure type: irrigation Procedure outcomes: cerumen removed Post-procedure details: Inspection: Ear canal clear and TM intact Procedure completion: Tolerated well, no immediate complications Karolina Chaloux CAR STEREO INSTALLER IN CLINIC/BEDSIDE ORDERABLES Edited Result - Final * (ABNORMAL) POCT glycosylated hemoglobin (Hgb A1c) (11/13/2024 12:15 PM EDT) Hemoglobin A1C 7.5(A) 4.0 - 5.7 % Blood Capillary blood specimen / Unknown 11/13/2024 12:15 PM EDT Karolina Rivas CAR STEREO INSTALLER POINT OF CARE TEST ENTER/EDIT ORDERABLES Final Result * Referral to Nephrology (11/06/2024) Karolina Rivas CAR STEREO INSTALLER OUTPATIENT REFERRAL ORDERABLE S Final Result * CBC (10/29/2024 12:10 PM EDT) Blood Venous blood specimen / Unknown Karolina Rivas CAR STEREO INSTALLER LAB BLOOD ORDERABLES Final Re sult * XR ABDOMEN AP (10/29/2024 12:09 PM EDT) Anatomical Region Laterality Modality Abdomen Radiographic Stacie ging Karolina Rivas CAR STEREO INSTALLER IMG XR PROCEDURES Final Resul t * Referral to Gastroenterology (10/29/2024) Karolina Rivas CAR STEREO INSTALLER OUTPATIENT REFERRAL ORDERABLE S Final Result * Comprehensive Metabolic Panel (10/20/2024 9:45 AM EDT) Only the most recent of2 resultswithin the time period is included. Blood Venous blood specimen / Unknown Karolina Rivas CAR STEREO INSTALLER LAB BLOOD ORDERABLES Final Re sult * CT Abdomen Pelvis w/ Contrast (10/20/2024 9:41 AM EDT) Anatomical Region Laterality Modality Body, Pelvis, Abdomen Computed T omography Karolina Rivas CAR STEREO INSTALLER IMG CT PROCEDURES Final Resul t * ECG 12 lead (10/20/2024 9:40 AM EDT) Karolina Scalesx CAR STEREO INSTALLER ECG ORDERABLES Final Result * Interpretation: (10/17/2024 11:55 AM EDT) [facility] Interpretation: [facility] 1 Comment: Not infected with HCV unless early or acute infection is suspected (which may be delayed in an immunocompromised individual), or other evidence exists to indicate HCV infection. 10/17/2024 11:5 5 AM EDT 10/17/2024 Narrative Resulting Agency Comment Performed at: - [facility] [address], [address], [place], [place] [id number] Irrigator Head: Camron Carter MD, Phone: [phone] Karolina Rob CAR STEREO INSTALLER HISTORICAL/NON ORDERABLE LABS Final Result Performing Organization Address [facility] Co de Phone Number [facility] * Hepatitis C Virus (HCV) Antibody Cunningham to Quantitative PCR and Genotyping (10/17/2024 11:55 AM EDT) [facility] HCV Ab Non Reactive Non Reactive [facility] 1 Blood Venous blood specimen / Unknown 10/17/2024 11:55 AM EDT 10/17/2024 Narrative Resulting Agency Comment Performed at: - [facility] [address], [address], [place], [place] [id number] Irrigator Head: Camron Carter MD, Phone: [phone] Karolina Rivas CAR STEREO INSTALLER LAB BLOOD ORDERABLES Final Re sult [facility] * CBC auto differential (10/17/2024 11:55 AM EDT) [facility] White Blood Cell Count 5.6 3.4 - 10.8 x10E3/uL [facility] 1 Red Blood Cell Count 5.25 4.14 - 5.80 x10E6/uL [facility] 1 Hemoglobin 15.5 13.0 - 17.7 g/dL [facility] 1 Hematocrit 46.9 37.5 - 51.0 % [facility] 1 MCV 89 79 - 97 fL [facility] 1 MCH 29.5 26.6 - 33.0 pg [facility] 1 MCHC 33.0 31.5 - 35.7 g/dL [facility] 1 RDW 12.4 11.6 - 15.4 % [facility] 1 Platelet Count 155 150 - 450 x10E3/uL [facility] 1 Neutrophils 73 Not Estab. % [facility] 1 Lymphocytes 16 Not Estab. % [facility] 1 Monocytes 10 Not Estab. % [facility] 1 Eosinophils 1 Not Estab. % [facility] 1 Basophils 0 Not Estab. % [facility] 1 Absolute Neutrophils 4.1 1.4 - 7.0 x10E3/uL [facility] 1 Absolute Lymphocytes 0.9 0.7 - 3.1 x10E3/uL [facility] 1 Absolute Monocytes 0.6 0.1 - 0.9 x10E3/uL [facility] 1 Absolute Eosinophils 0.1 0.0 - 0.4 x10E3/uL [facility] 1 Absolute Basophils 0.0 0.0 - 0.2 x10E3/uL [facility] 1 Immature Granulocytes 0 Not Estab. % [facility] 1 Immature Grans (Abs) 0.0 0.0 - 0.1 x10E3/uL [facility] 1 Blood Venous blood specimen / Unknown 10/17/2024 11:55 AM EDT 10/17/2024 Narrative Resulting Agency Comment Performed at: - [address] [id number] Irrigator Head: Jessica Lowe MD, Phone: [phone] us Karolina Rivas CNP LAB BLOOD ORDERABLES Final Re sult [facility] * HIV p24 Antigen/Antibody With Reflex to Confirmation [id number] (10/17/2024 11:55 AM EDT) [facility] HIV Ab/p24 Ag Screen Non Reactive Non Reactive [facility] 1 Comment: HIV-1/HIV-2 antibodies and HIV-1 p24 antigen were NOT detected. There is no laboratory evidence of HIV infection. HIV Negative Blood Venous blood specimen / Unknown 10/17/2024 11:55 AM EDT 10/17/2024 Narrative Resulting Agency Comment Performed at: - [facility] [place] [address], [place], [place] [id number] Irrigator Head: Camron Carter MD, Phone: [phone] us Karolina Chaloux CAR STEREO INSTALLER LAB BLOOD ORDERABLES Final Re sult Performing Organization Address City/[facility] Co de Phone Number [facility] * Sed Rate by Modified Westergren (10/17/2024 11:55 AM EDT) Sed Rate By Modified Westergren 5 0 - 30 mm/hr [facility] 1 Blood Venous blood specimen / Unknown 10/17/2024 11:55 AM EDT 10/17/2024 Narrative Resulting Agency Comment Performed at: - [facility] [id number] Irrigator Head: Jessica Lowe MD, Phone: [phone] us Karolina Solar Flow-Throughoux CAR STEREO INSTALLER LAB BLOOD ORDERABLES Final Re sult Performing Organization Address [facility] de Phone Number [facility] 1 * Protein, Total and Protein??Electrophoresis (10/17/2024 11:55 AM EDT) Protein, Total 6.3 6.0 - 8.5 g/dL [facility] 1 Albumin 3.5 2.9 - 4.4 g/dL [facility] 1 Alpha 1 Globulin 0.2 0.0 - 0.4 g/dL [facility] 1 Alpha 2 Globulin 0.7 0.4 - 1.0 g/dL [facility] 1 Beta Globulin 0.9 0.7 - 1.3 g/dL [facility] 1 Gamma Globulin 1.1 0.4 - 1.8 g/dL [facility] 1 M-Maurisio Not Observed Not Observed g/dL [facility] 1 Globulin, Total 2.8 2.2 - 3.9 g/dL [facility] 1 A/G Ratio 1.3 0.7 - 1.7 [facility] 1 Please Note: [facility] 1 Comment: Protein electrophoresis scan will follow via computer, mail, or cannery tender engineer delivery. Protein Electrophoresis Interpretation [facility] 1 Comment: The SPE pattern appears unremarkable. Evidence of monoclonal protein is not apparent. 10/17/2024 11:5 5 AM EDT 10/17/2024 Narrative Resulting Agency Comment Performed at: - [facility] [address] [id number] Irrigator Head: Jessica Lowe MD, Phone: [phone] [facility] LAB BLOOD ORDERABLES Final Re sult Performing Organization Address City/[facility]/ZIP Co de Phone Number [facility] * Immunoglobulin M (10/17/2024 11:55 AM EDT) Pathologist [facility] Immunoglobulin M 60 20 - 172 mg/dL [facility] 1 10/17/2024 11:5 5 AM EDT 10/17/2024 Narrative Resulting Agency Comment Performed at: - [facility] [address] [id number] Irrigator Head: Jessica Lowe MD, Phone: [phone] [facility] LAB BLOOD ORDERABLES Final Re sult Performing Organization Address [facility] Co de Phone Number [facility] * Transthoracic echo (TTE) complete (10/16/2024 8:56 AM EDT) [facility] CV ECHO PROCEDURES Final Resu lt * Lipid panel (07/15/2022 9:12 AM EDT) Cholesterol, Total 160 (<200) MG/DL [facility] Triglyceride (mg/dL) in Serum/Plasma 68 (<150) MG/DL [facility] HDL Cholesterol 50 (>39) MG/DL [facility] LDL Cholesterol, Calculated 96 (0-130) MG/DL [facility] Non HDL Chol. (LDL+VLDL) 110 (<160) MG/DL [facility] Comment: Testing performed or reported by [facility], a Service of [facility], [address] [place] [id number] Marilin Hwang MD, Rn Sexual Assault [facility]# [id number] Blood Venous blood specimen / Unknown 07/15/2022 9:12 AM EDT 07/15/2022 9:13 AM EDT Karolina Rivas CAR STEREO INSTALLER LAB BLOOD ORDERABLES Final Re sult [facility] [address] [place] [phone] * Colonoscopy (01/02/2012) [facility] Colonoscopy No polyps noted but prep was poor. Negative exam. Repeat exam in 10 yrs. unless clinically indicated before that time. Historical Provider HEALTH MAINTENANCE Final Result from Last 3 Months or Most Recently Relevant to Health Maintenance Insurance [facility] C3 DENTAL-[facility] MEDICAID STAND ADULT Care Teams Video Poker Floorman Relationship Specialty Start Date End Date Karolina Rivas CNP [address] [place] [address] PCP - General Family Medicine 04/28/22 Ebonie Spears 12/13/24
--- OUTSIDE RECORDS SUMMARY | 2024-12-16 21:17 | XMS_ITS | Encounter Summary ---
Author Organization [employer] Address [address] [facility] [address] 7[address] [place] [address] Care Team Providers Care Painter Plate Name Role Phone AuroradannielleKarolina peña PIO Primary Care Provider [phone] Ebonie Spears Unavailable Ebonie Spears Unavailable Encounter Details Date Type Department Care Team (Late st Contact Info) Description 07/20/2023 Orders Only [facility] MED[facility] [address] [place] [address] Provider, MD Jesika Social History Tobacco Use [...] Description 03/05/2025 3:00 PM EST Office Visit [facility] MEDICAL [address] [place] [address] Karolina Rivas, MANAGER ANALYTICAL [address] [place] [address] documented as of this encounter Procedures Procedure [...] 2:41 PM EDT HEPATIC FUNCTION PANEL Routine 2:41 PM EDT BASIC METABOLIC PANEL Routine 06/12/2023 2:41 PM EDT documented in this encounter Results * Hemoglobin A1c (06/12/2023 2:41 PM EDT) Blood Venous blood specimen / Unknown Result [facility] MD LAB BLOOD ORDERABLES Amaris l Result * ALT (06/12/2023 2:41 PM EDT) Blood Venous blood specimen / Unknown Result [facility] MD LAB BLOOD ORDERABLES Amaris l Result * Hepatic Function Panel (06/12/2023 2:41 PM EDT) Blood Venous blood specimen / Unknown Result [facility] MD LAB BLOOD ORDERABLES Amaris l Result * Basic Metabolic Panel (06/12/2023 2:41 PM EDT) Blood Venous blood specimen / Unknown Result [facility] MD LAB BLOOD ORDERABLES Amaris l Result * Cystatin C (06/12/2023 2:41 PM EDT) Result [facility] MD LAB BLOOD ORDERABLES Amaris l Result * NT-proBNP (06/12/2023 2:41 PM EDT) Venous blood specimen / Unknown Result [facility] MD LAB BLOOD ORDERABLES Amaris l Result * Creatine Kinase, Total (06/12/2023 2:41 PM EDT) Blood Venous blood specimen / Unknown Result [facility] MD LAB BLOOD ORDERABLES Amaris l Result * Bilirubin, Total (06/12/2023 2:41 PM EDT) Blood Venous blood specimen / Unknown us Historical Provider MD LAB BLOOD ORDERABLES Amaris l Result * Microalbumin, urine, 24 hour (06/12/2023 2:41 PM EDT) Urine Urine specimen obtained by clean catch procedure / Unknown Result [facility] Provider MD LAB URINE ORDERABLES Amaris l Result * Urinalysis Complete (06/12/2023 2:41 PM EDT) Urine (Urine, Random) Result [facility] Provider MD LAB URINE ORDERABLES Amaris l Result * CBC auto differential (06/12/2023 2:41 PM EDT) Blood Venous blood specimen / Unknown Result [facility] Provider MD LAB BLOOD ORDERABLES Amaris l Result documented in this encounter Visit Diagnoses Not on filedocumented in this encounter Care Teams Painter Plate Relationship Specialty Start Date End Date Karolina Rivas CNP [address] [place] [address] PCP - General Family Medicine 04/28/22 Ebonie Spears 10/22/24 10/28/24 Ebonie Spears 12/13/24 documented as of this encounter
--- OUTSIDE RECORDS SUMMARY | 2024-12-16 21:17 | XMS_ITS | Encounter Summary ---
Author Organization [employer] Address [address] [facility] 7t [place] [address] Care Team Providers Care Scorer Helper Name Role Phone Karolina Rivas PIO Primary Care Provider [phone] Ebonie Spears Unavailable Encounter Details Date Type Department Care Team (Late st Contact Info) Description 12/13/2024 Patient Outreach [facility] Department [address] [facility] [address] [place] [address] Ebonie Spears Social History Tobacco Use Types Packs/Day Years [...] AM EST documented as of this encounter Progress Notes * Ebonie Spears - 12/13/2024 9:42 AM EDT Chart review completed. Member identified for care management from [facility]3 ADT Feed following admission at [facility]. Per EVS member is C3 eligible, is attributed to [place] and is not active with a CP. reviewed for diagnoses, risk factors, and utilization. 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 (CMS/HCC) Family history of hypertrophic cardiomyopathy Chronic systolic congestive heart failure (CMS/HCC) Poor perfusion of leg Utilization-4 IP admissions per [facility] HPI-Visit Diagnoses Anoxic brain damage, not elsewhere classified Pneumonia, unspecified organism Type 1 diabetes mellitus without complications Acute kidney failure, unspecified Heart failure, unspecified Unspecified diastolic (congestive) heart failure Personal history of sudden cardiac arrest Underweight Weakness Bradycardia, unspecified Thyrotoxicosis, unspecified without thyrotoxic crisis or storm Other thyrotoxicosis without thyrotoxic crisis or storm 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 documented in this encounter Plan of Treatment Upcoming Encounters Date Type Department Care Team (Late st Contact Info) Description 03/05/2025 3:00 PM EST Office Visit [facility] MEDICAL [address] [place] [address] Karolina Rivas CNP [address] [place] [address] documented as of this encounter Visit Diagnoses Not on filedocumented in this encounter Additional Health Concerns Assessment Noted Time PHQ-9 Depression Total Score: 4 08/29/19 11:49 AM EDT documented as of this encounter Care Teams Scorer Helper Relationship Specialty Start Date End Date Karolina Rivas CNP [address] [place] [address] PCP - General Family Medicine 04/28/22 Ebonie Spears 12/13/24 documented as of this encounter
--- OUTSIDE RECORDS SUMMARY | 2024-12-16 21:17 | XMS_ITS | Encounter Summary ---
Author Organization [employer] Address 75 [facility] 7t [place] [address] Care Team Providers Care Welt Trimming Machine Operator Name Role Phone Karolina Rivas CNP Primary Care Provider [phone] Ebonie Spears Unavailable Ebonie Spears Unavailable Encounter Details Date Type Department Care Team (Late st Contact Info) Description 12/29/2023 Orders Only [facility] MED[facility] [address] [place] [address] Karolina Rivas CNP [address] [place] [address] Colon cancer screening Social History Tobacco Use Types Packs/Day Years Used Date Smoking Tobacco: Never Smokeless Tobacco: Never Alcohol Use Standard Drinks/Week Comments Never 0 (1 standard drink = 0.6 oz pur e alcohol) occ Housing Stability Answer Date Recorded What is your housing situation today? I have ronbogdan cline 01/22/[address] you [...] Description 03/05/2025 3:00 PM EST Office Visit [facility] MEDICAL [address] [place] [address] Karolina Rivas CNP [address] [place] [address] documented as of this encounter Procedures Procedure Name Priority Date/Time Associated Diagnosis Comments AMB REFERRAL TO GASTROENTEROLOGY Routine 12/26/2023 Colon cancer screening documented in this encounter Results * Referral to Gastroenterology (12/26/2023) Karolina Rivas CNP OUTPATIENT REFERRAL ORDERABLE S Final Result documented in this encounter Visit Diagnoses Diagnosis Colon cancer screening Special screening for malignant neoplasms, colon documented in this encounter Care Teams Welt Trimming Machine Operator Relationship Specialty Start Date End Date Karolina Rivas CNP [address] [place] [address] PCP - General Family Medicine 04/28/22 Ebonie Spears 10/22/24 10/28/24 Ebonie [phone] (Work) 12/13/24 documented as of this encounter
--- OUTSIDE RECORDS SUMMARY | 2024-12-16 21:17 | XMS_ITS | Encounter Summary ---
Author Organization [employer] Address 75 [facility] 7t [place] [address] Care Team Providers Care Solution Maker Name Role Phone Karolina Rivas CNP Primary Care Provider [phone] Ebonie Spears Unavailable Reason for Visit * Reason Onset Date Comments VNA 12/13/2024 hospital admission, obtain hospital records 12/02 Encounter Details Date Type Department Care Team (Late st Contact Info) Description 12/13/2024 Telephone [facility] MEDICAL [address] [place] [address] Karolina Rivas CNP [address] [place] [address] VNA; hospital admission, obtain hospital records Social History Tobacco Use Types Packs/Day Years [...] AM EST documented as of this encounter Miscellaneous Notes * Telephone Encounter - Darshana Fenton LPN - 12/16/2024 10:28 AM EDT Call placed to Karen at [facility]. Confirmed provider and last office visit with provider and if provider is willing to sign home care orders for patient. No other questions noted. * Telephone Encounter - Amber Barger - 12/13/2024 2:17 PM EDT Karen ([facility]) called stating the patient is currently at [facility] where he wasadmitted for hyperthyroidism and the patient has a possible discharge date for sometime this weekend. Karen states they don't have a start of care date yet but [facility]. Karen states she would like to know if the patient is active with [facility] and would like a call back, thank you! TE sent to nursing TE sent to medical records to obtain hospital records documented in this encounter Plan of Treatment Upcoming Encounters Date Type Department Care Team (Late st Contact Info) Description 03/05/2025 3:00 PM EST Office Visit [place] [facility] MEDICAL [address] [facility] [place] [address] Karolina Rivas CNP [address] [place] [address] documented as of this encounter Visit Diagnoses Not on filedocumented in this encounter Additional Health Concerns Assessment Noted Time PHQ-9 Depression Total Score: 4 08/29/19 11:49 AM EDT documented as of this encounter Care Teams Solution Maker Relationship Specialty Start Date End Date Karolina Rivas CNP [address] [place] [address] PCP - General Family Medicine 04/28/22 Ebonie Spears 12/13/24 documented as of this encounter
--- OUTSIDE RECORDS SUMMARY | 2024-12-16 21:18 | XMS_ITS | Clinical Summary ---
Author Organization [facility] Address [address] [place] [address] Phone Care Team Providers Care Kennel Helper Name Role Phone Mona Mulligan MD Primary Care Provider [phone] Allergies No known active allergies Medications amantadine (SYMMETREL) 100 mg tablet Take by [...] (NovoLOG) 100 unit/mL injection Inject as directed. Active insulin glargine (Lantus Solostar U-100 Insulin) 100 [...] 20 mg tablet Take by mouth. Active sacubitriL-vals ron (Entresto) 97-103 mg per tablet Take by mouth. Active Immunizations Name Administration Dates Next Due Moderna SARS-CoV-2 COVID-19, mRNA, LNP-S, preservative free 01/25/2021,07/19/2020,06/20/2020 Social History Tobacco Use Types Packs/Day Years Used Date Smoking Tobacco: Never Alcohol Use Standard Drinks/Week Comments Not Asked 0 (1 standard drink = 0.6 oz pur e alcohol) Sex and Gender Information Value Date Recorded Sex Assigned at Not on file Legal Sex Male 12:00 PM EST Gender Identity Not on file Sexual Orientation Not on file Obstetrics History Last Filed Vital Signs Vital Sign Reading Time Taken Comments Blood Pressure 110/70 04/17/2024 1:47 PM EST Pulse 60 04/17/2024 1:47 PM EST Temperature - - Respiratory Rate 16 04/17/2024 1:47 PM EST Oxygen Saturation - - Inhaled Oxygen Concentration - - Weight 56.7 kg (125 lb) 05/29/2024 3:21 PM EST Height 170.2 cm (5' 7.01 ) 05/29/2024 3:21 PM ES T Body Mass Index 19.57 05/29/2024 3:21 PM EST Plan of Treatment Health Maintenance Due Date Last Done Comments Diabetes: Annual Foot Exam 1971 Diabetes: Annual Retina Eye Exam 1971 Pneumococcal Vaccine: 50+ Years (2 of 2 - PCV) 09/16/2010 09/16/2009 Zoster Vaccines (1 of 2) 2011 Colorectal Cancer Screening: Colonoscopy 03/01/2022 Hepatitis C Screening 03/01/2022 Social Influencers of Health Screening 03/01/2022 Depression Screening 04/03/2024 Diabetes: Annual Urine Albumin-Creatinine Ratio (uACR) 04/16/2024 04/21/2021 Diabetes: Blood Sugar Control Test (HGBA1C) 05/22/2024 11/20/2023, 05/10/2023, 02/15/2023 Diabetes: Annual GFR (Glomerular Filtration Rate) 06/01/2024 06/02/2023 Hypertension/CHF/CAD Annual BMP Blood Test 06/01/2024 06/02/2023 Influenza Vaccine (#1) 2024 , 02/14/2023, 01/12/2022, Additional history exists Cholesterol Screening (Lipid Panel) 07/16/2027 07/15/2022, 07/15/2022 DTaP,Tdap,and Td Vaccines (4 - Td or Tdap) 04/13/2031 04/13/2021, 09/23/2011, 05/18/2004 HIV Screening Completed 08/28/2015 Hepatitis B Vaccines Completed 10/28/2019, 06/03/2019, 05/01/2019 RSV Immunization Adult Patients Completed 03/15/2023 COVID-19 Vaccine Completed 12/28/2023, , 02/02/2022, Additional history exists HIB Vaccines Aged Out [...] Results * Annual BMP Blood Test (06/02/2023) Pathologist [facility] Annual BMP Blood Test abstracted Historical Provider HEALTH MAINTENANCE Final Result * Hemoglobin A1c (05/10/2023) Pathologist [facility] Hemoglobin A1C 0.0 % Comment:no interpretation Blood Venous blood specimen / Unknown Result [facility] Provider LAB BLOOD ORDERABLES Aamris l Result * Lipid panel (07/15/2022) [facility] Triglycerides 0 mg/dL Comment:no interpretation Cholesterol 0 mg/dL Comment:no interpretation HDL 0 mg/dL Comment:no interpretation LDL Cholesterol 0 mg/dL Comment:no interpretation Blood Venous blood specimen / Unknown Result [facility] Provider LAB BLOOD ORDERABLES Amaris l Result * Urine Albumin Creatinine Ratio (04/21/2021) Pathologist [facility] Urine Albumin Creatinine Ratio abstracted [facility] Provider HEALTH MAINTENANCE Final Result from Last 3 Months or Most Recently Relevant to Health Maintenance Insurance MEDICAID - [place] Advance Directives Documents on File Type Date Recorded Patient Spiral Weaver Expl anation Health Care Decision (hx) 07/14/2021 AD ODOM DIRECTIVE Health Care Decision (hx) 07/14/2021 AD ODOM DIRECTIVE Health Care Decision (hx) 07/14/2021 AD ODOM DIRECTIVE Health Care Decision (hx) 07/14/2021 AD ODOM DIRECTIVE Care Teams Kennel Helper Relationship Specialty Start Date End Date Mona Mulligan MD [address] [place] [address] PCP - General Internal Medicine 07/27/21
--- OUTSIDE RECORDS SUMMARY | 2024-12-16 21:18 | XMS_ITS | Encounter Summary ---
Author Organization [employer] Address 75 [facility] 7t [place] [address] Care Team Providers Care Aircraft Restorer Name Role Phone Karolina Rivas CNP Primary Care Provider [phone] Selwyn Noble [facility] Unavailable Unavail able Cate Copeland RN Unavailable [phone] Ebonie Spears Unavailable Regan Ebonie Unavailable Encounter Details Date Type Department Care Team (Late st Contact Info) Description 05/04/2022 Abstract [facility] MEDICAL [address] [place] [address] Karolina Rivas CNP [address] [place] [address] Social History Tobacco Use Types Packs/Day Years [...] Description 03/05/2025 3:00 PM EST Office Visit [place] [facility] MEDICAL [address] [facility] [place] [address] Karolina Rivas CNP [address] [place] [address] documented as of this encounter Visit Diagnoses Not on filedocumented in this encounter Care Teams Aircraft Restorer Relationship Specialty Start Date End Date Karolina Rivas CNP [address] [place] [address] PCP - General Family Medicine 04/28/22 Selwyn Noble, [facility] Community Health Worker Case Management 09/16/22 10/26/22 Cate Copeland, RN Registered Nurse Case Management 09/23/22 11/25/22 Ebonie Spears 10/22/24 10/28/24 Ebonie Spears 12/13/24 documented as of this encounter
--- OUTSIDE RECORDS SUMMARY | 2024-12-16 21:18 | XMS_ITS | Encounter Summary ---
Author Organization [employer] Address 75 [facility] 7t [place] [address] Care Team Providers Care Acetylene Torch Operator Name Role Phone Karolina Rivas CNP Primary Care Provider [phone] [facility] NobleSW Unavailable Unavail able Cate Copeland RN Unavailable [phone] Ebonie Spears Unavailable Cherie Spearsn Unavailable Encounter Details Date Type Department Care Team (Late st Contact Info) Description 04/28/2022 Abstract [facility] [address] [place] [address] Karolina Rivas CNP [address] [place] [address] Social History Tobacco Use Types Packs/Day Years [...] Description 03/05/2025 3:00 PM EST Office Visit [facility] [address] [place] [address] Karolina Rivas CNP [address] [place] [address] documented as of this encounter Visit Diagnoses Not on filedocumented in this encounter Care Teams Acetylene Torch Operator Relationship Specialty Start Date End Date Karolina Rivas CNP [address] [place] [address] PCP - General Family Medicine 04/28/22 Selwyn Noble, [facility] Community Health Worker Case Management 09/16/22 10/26/22 Cate Copeland, RN Registered Nurse Case Management 09/23/22 11/25/22 Ebonie Spears 10/22/24 10/28/24 Ebonie Spears 12/13/24 documented as of this encounter
--- OUTSIDE RECORDS SUMMARY | 2024-12-16 21:18 | XMS_ITS | Encounter Summary ---
Author Organization [employer] Address 75 [facility] 7 [place] [address] Care Team Providers Care Desktop Analyst Name Role Phone Karolina Rivas CNP Primary Care Provider [phone] [facility] NobleSW Unavailable Unavail able Cate Copeland RN Unavailable [phone] Ebonie Spears Unavailable Ebonie Spears Unavailable Encounter [...] Description 03/05/2025 3:00 PM EST Office Visit [place] [facility] MEDICAL [address] [place] [address] Karolina Rivas CNP [address] [place] [address] documented as of this encounter Visit Diagnoses Not on filedocumented in this encounter Care Teams Desktop Analyst Relationship Specialty Start Date End Date Karolina Rivas CNP [address] [place] [address] PCP - General Family Medicine 04/28/22 Selwyn Noble, [facility] Community Health Worker Case Management 09/16/22 10/26/22 Cate Copeland, RN Registered Nurse Case Management 09/23/22 11/25/22 Ebonie Spears 10/22/24 10/28/24 Ebonie Spears 12/13/24 documented as of this encounter
--- OUTSIDE RECORDS SUMMARY | 2024-12-16 21:18 | XMS_ITS | Encounter Summary ---
Author Organization [employer] Address 75 [facility] 7 [place] [address] Care Team Providers Care Adjunct Professor Of U.[place]. History Name Role Phone Karolina Rivas CNP Primary Care Provider [phone] Sel[facility] NobleSW Unavailable Unavail able Cate Copeland RN Unavailable [phone] Ebonie Spears Unavailable Ebonie Spears Unavailable [...] Description 03/05/2025 3:00 PM EST Office Visit [place] [facility] MEDICAL [address] [place] [address] Karolina Rivas CNP [address] [place] [address] documented as of this encounter Visit Diagnoses Not on filedocumented in this encounter Care Teams Adjunct Professor Of U.S. History Relationship Specialty Start Date End Date Karolina Rivas CNP [address] [place] [address] PCP - General Family Medicine 04/28/22 Selwyn Noble, [facility] Community Health Worker Case Management 09/16/22 10/26/22 Cate Copeland, RN Registered Nurse Case Management 09/23/22 11/25/22 Ebonie Spears 10/22/24 10/28/24 Ebonie Spears 12/13/24 documented as of this encounter
--- OUTSIDE RECORDS SUMMARY | 2024-12-16 21:18 | XMS_ITS | Encounter Summary ---
Author Organization [employer] Address 75 [facility] 7t [place] [address] Care Team Providers Care Front End Software Engineer Name Role Phone Karolina Rivas CNP Primary Care Provider [phone] Ebonie Spears Unavailable Ebonie Spears Unavailable Reason for Visit * Reason Onset Date Comments Med Refill 06/26/2024 Encounter Details Date Type Department Care Team (Late st Contact Info) Description 06/26/[address] [facility] MEDICAL [address] [place] [address] Karolina Rivas CNP [address] [place] [address] Social History Tobacco Use Types Packs/Day Years Used Date Smoking Tobacco: Never Smokeless Tobacco: Never Alcohol Use Standard Drinks/Week Comments Never 0 (1 standard drink = 0.6 oz pur e alcohol) occ Housing Stability Answer Date Recorded What is your housing situation today? I have ron son 01/22/[address] you li [...] encounter Miscellaneous Notes * Telephone Encounter - MAYNOR Kwan - 06/26/2024 10:18 AM EDT Duplicate documented in this encounter Plan of Treatment Upcoming Encounters Date Type Department Care Team (Late st Contact Info) Description 03/05/2025 3:00 PM EST Office Visit [facility] MEDICAL [address] [place] [address] Karolina Rivas CNP [address] [place] [address] documented as of this encounter Visit Diagnoses Not on filedocumented in this encounter Care Teams Front End Software Engineer Relationship Specialty Start Date End Date Karolina Rivas CNP [address] [place] [address] PCP - General Family Medicine 04/28/22 Ebonie Spears 10/22/24 10/28/24 Ebonie Spears 12/13/24 documented as of this encounter
--- OUTSIDE RECORDS SUMMARY | 2024-12-16 21:18 | XMS_ITS | Encounter Summary ---
Author Organization [employer] Address 75 [facility] 7t [place] [address] Care Team Providers Care Deck Engine Operator Name Role Phone Karolina Rivas CNP Primary Care Provider [phone] Selwyn NobleSW Unavailable Unavail able Cate Copeland RN Unavailable Ebonie Spears Unavailable Cherie Spearsn Unavailable Encounter Details Date Type Department Care Team (Late st Contact Info) Description 04/28/2022 Abstract [facility] [address] [place] [address] Karolina Rivas CNP [address] [place] [address] Social History Tobacco Use Types Packs/Day Years [...] Description 03/05/2025 3:00 PM EST Office Visit [facility] [address] [place] [address] Karolina Rivas CNP [address] [place] [address] documented as of this encounter Visit Diagnoses Not on filedocumented in this encounter Care Teams Deck Engine Operator Relationship Specialty Start Date End Date Karolina Rivas CNP [address] [place] [address] PCP - General Family Medicine 04/28/22 Selwyn Noble, [facility] Community Health Worker Case Management 09/16/22 10/26/22 Cate Copeland, RN Registered Nurse Case Management 09/23/22 11/25/22 Ebonie Spears 10/22/24 10/28/24 Ebonie Spears 12/13/24 documented as of this encounter
--- OUTSIDE RECORDS SUMMARY | 2024-12-16 21:18 | XMS_ITS | Encounter Summary ---
Author Organization [employer] Address 75 [facility] 7 [place] [address] Care Team Providers Care Dental Appliance Mechanic Name Role Phone Karolina Rivas CNP Primary Care Provider [phone] Selwyn NobleSW Unavailable Unavail able Cate Copeland RN Unavailable [phone] Ebonie Spears Unavailable Ebonie Spears Unavailable [...] Description 03/05/2025 3:00 PM EST Office Visit [place] [facility] MEDICAL [address] [place] [address] Karolina Rivas CNP [address] [place] [address] documented as of this encounter Visit Diagnoses Not on filedocumented in this encounter Care Teams Dental Appliance Mechanic Relationship Specialty Start Date End Date Karolina Rivas CNP [address] [place] [address] PCP - General Family Medicine 04/28/22 Selwyn Noble, [facility] Community Health Worker Case Management 09/16/22 10/26/22 Cate Copeland, RN Registered Nurse Case Management 09/23/22 11/25/22 Ebonie Spears 10/22/24 10/28/24 Ebonie Spears 12/13/24 documented as of this encounter
--- OUTSIDE RECORDS SUMMARY | 2024-12-16 21:18 | XMS_ITS | Encounter Summary ---
Author Organization [employer] Address [address] [facility] 7[address] [place] [address] Care Team Providers Care Gas Cutter Name Role Phone Karolina Rivas CNP Primary Care Provider [phone] Selwyn NobleSW Unavailable Unavail able Cate Copeland RN Unavailable [phone] Ebonie Spears Unavailable Cherie Spearsn Unavailable Encounter Details Date Type Department Care Team (Late st Contact Info) Description 04/28/2022 Abstract [facility] [address] [place] [address] Karolina Rivas CNP [address] [place] [address] Social History Tobacco Use Types Packs/Day Years [...] Description 03/05/2025 3:00 PM EST Office Visit [facility] [address] [place] [address] Karolina Rivas CNP [address] [place] [address] documented as of this encounter Procedures Procedure Name Priority Date/Time Associated Diagnosis Comments HEMOGLOBIN A1C Routine 10/12/2021 LIPID PANEL, STANDARD Routine 04/21/2021 HIV-1 ANTIBODY, EIA Routine 08/28/2015 HM COLONOSCOPY Routine 01/02/2012 documented in this encounter Results * (ABNORMAL) Hemoglobin A1c (10/12/2021) Hemoglobin A1C 8.4(A) 4.0 - 6.0 % Blood Venous blood specimen / Unknown [facility] Provider LAB BLOOD ORDERABLES Amaris l Result * Lipid Panel, Standard (04/21/2021) Triglycerides 73 40 - 160 mg/dL Cholesterol 120 0 - 200 mg/dL HDL Cholesterol 50 35 - 70 mg/dL LDL Cholesterol 55 mg/dL Blood Venous blood specimen / Unknown [facility] Provider LAB BLOOD ORDERABLES Amaris l Result * HIV-1 antibody, EIA (08/28/2015) External HIV-1 Antibody Negative Blood Venous blood specimen / Unknown [facility] Provider LAB BLOOD ORDERABLES Amaris l Result * Colonoscopy (01/02/2012) Colonoscopy No polyps noted but prep was poor. Negative exam. Repeat exam in 10 yrs. unless clinically indicated before that time. [facility] Provider HEALTH MAINTENANCE Final Result documented in this encounter Visit Diagnoses Not on filedocumented in this encounter Care Teams Gas Cutter Relationship Specialty Start Date End Date Karolina Rivas CNP [address] [place] [address] PCP - General Family Medicine 04/28/22 Selwyn Noble, [facility] Community Health Worker Case Management 09/16/22 10/26/22 Cate Copeland, RN Registered Nurse Case Management 09/23/22 11/25/22 Ebonie Spears 10/22/24 10/28/24 Ebonie Spears 12/13/24 documented as of this encounter
--- OUTSIDE RECORDS SUMMARY | 2024-12-16 21:18 | XMS_ITS | Encounter Summary ---
Author Organization [facility] Address [address] [facility] [address] [place] [address] Phone Care Team Providers Care Carbonizer Tester Name Role Phone Shantell Blackman MD Unavailable [phone] Karolina Rivas FLOOR COVERING CONTRACTOR Primary Care Provider [phone] Encounter Details Date Type Department Care Team (Late st Contact Info) Description 09/19/2023 Procedure Pass [facility] [address] [place] [address] Social History Tobacco Use Types Packs/Day Years [...] Upcoming Encounters Date Type Department Care Team ([facility] st Contact Info) Description 02/07/2025 11:00 AM EST Evaluation [facility] AUDIOLOGY [address] [address] Elizabeth Saavedra AuD [address] [place] [id number] [email or web address] 05/29/2025 11:00 AM EST Evaluation [facility] Audiology [address] [address] Janae Perez, Uriel [address] [place] [id number] [email or web address] 05/29/2025 11:45 AM EST Office Visit [facility] Otology [address] [address] Ayanna Iqbal MD [address] [place] [address] [place] [address] [email or web address] documented as of this encounter Visit Diagnoses Not on filedocumented in this encounter Care Teams Carbonizer Tester Relationship Specialty Start Date End Date Karolina Rivas CNP [address] [place] [id number] [email or web address] PCP - General Nurse Practitioner 09/14/23 Shantell Blackman MD [address] [place] [address], 1[address] [place] [address] [email or web address] Historical [facility] Provider 01/18/17 documented as of this encounter Additional Source Comments The information contained in this document represents components of the legal health record. It is not the complete legal health record.[facility]
--- OUTSIDE RECORDS SUMMARY | 2024-12-16 21:18 | XMS_ITS | Encounter Summary ---
Author Organization [employer] Address [address] [facility] 7 [place] [address] Care Team Providers Care Dance Entertainer Name Role Phone Karolina Rivas CNP Primary Care Provider [phone] Selwyn NobleSW Unavailable Unavail able Cate Copeland RN Unavailable Ebonie Spears Unavailable Ebonie Spears Unavailable Encounter [...] Description 03/05/2025 3:00 PM EST Office Visit [place] [facility] [address] [place] [address] Karolina Rivas CNP [address] [place] [address] documented as of this encounter Visit Diagnoses Not on filedocumented in this encounter Care Teams Dance Entertainer Relationship Specialty Start Date End Date Karolina Rivas CNP [address] [place] [address] PCP - General Family Medicine 04/28/22 Selwyn Noble, [facility] Community Health Worker Case Management 09/16/22 10/26/22 Cate Copeland, RN Registered Nurse Case Management 09/23/22 11/25/22 Ebonie Spears 10/22/24 10/28/24 Ebonie Spears 12/13/24 documented as of this encounter
--- OUTSIDE RECORDS SUMMARY | 2024-12-16 21:18 | XMS_ITS | Encounter Summary ---
Author Organization [employer] Address [address] [facility] 7 [place] [address] Care Team Providers Care Crop Grain Or Livestock Farmer Name Role Phone Karolina Rivas CNP Primary Care Provider [phone] Selwyn NobleSW Unavailable Unavail able Cate Copeland RN Unavailable [phone] Ebonie Spears Unavailable Ebonie Spears Unavailable [...] Description 03/05/2025 3:00 PM EST Office Visit [place] [facility] [address] [place] [address] Karolina Rivas CNP [address] [place] [address] documented as of this encounter Visit Diagnoses Not on filedocumented in this encounter Care Teams Crop Grain Or Livestock Farmer Relationship Specialty Start Date End Date Karolina Rivas CNP [address] [place] [address] PCP - General Family Medicine 04/28/22 Selwyn Noble, [facility] Community Health Worker Case Management 09/16/22 10/26/22 Cate Copeland, RN Registered Nurse Case Management 09/23/22 11/25/22 Ebonie Spears 10/22/24 10/28/24 Ebonie Spears 12/13/24 documented as of this encounter
--- OUTSIDE RECORDS SUMMARY | 2024-12-16 21:18 | XMS_ITS | Encounter Summary ---
Author Organization [employer] Address [address] [facility] [address] [place] [address] Care Team Providers Care Gas Operator Name Role Phone Karolina Rivas CNP Primary Care Provider Selwyn NobleSW Unavailable Unavail able Cate Copeland RN Unavailable [phone] Ebonie Spears Unavailable Ebonie Spears Unavailable [...] Description 03/05/2025 3:00 PM EST Office Visit [place] [facility] [address] [place] [address] Karolina Rivas CNP [address] [place] [address] documented as of this encounter Visit Diagnoses Not on filedocumented in this encounter Care Teams Gas Operator Relationship Specialty Start Date End Date Karolina Rivas CNP [address] [place] [address] PCP - General Family Medicine 04/28/22 Selwyn Noble, [facility] Community Health Worker Case Management 09/16/22 10/26/22 Cate Copeland, RN Registered Nurse Case Management 09/23/22 11/25/22 Ebonie Spears 10/22/24 10/28/24 Ebonie Spears 12/13/24 documented as of this encounter
--- OUTSIDE RECORDS SUMMARY | 2024-12-16 21:18 | XMS_ITS | Encounter Summary ---
Author Organization [employer] Address [address] [facility] 7 [place] [address] Care Team Providers Care Green Lumber Grader Name Role Phone Karolina Rivas CNP Primary Care Provider [phone] Selwyn NobleSW Unavailable Unavail able Cate Copeland RN Unavailable [phone] Ebonie Spears Unavailable Ebonie Spears Unavailable [...] Description 03/05/2025 3:00 PM EST Office Visit [place] [facility] [address] [place] [address] Karolina Rivas CNP [address] [place] [address] documented as of this encounter Visit Diagnoses Not on filedocumented in this encounter Care Teams Green Lumber Grader Relationship Specialty Start Date End Date Karolina Rivas CNP [address] [place] [address] PCP - General Family Medicine 04/28/22 Selwyn Noble, [facility] Community Health Worker Case Management 09/16/22 10/26/22 Cate Copeland, RN Registered Nurse Case Management 09/23/22 11/25/22 Ebonie Spears 10/22/24 10/28/24 Ebonie Spears 12/13/24 documented as of this encounter
== END 2024-12-16 16:09 | disposition home or self-care (01) ==
LOC: HO.HAP 16:08
PROVIDERS: PCP Nurse Practitioner Family; Visit Provider Nurse Practitioner Family
DX: Z46.1 Encounter for fitting and adjustment of hearing aid (principal); H90.3 Sensorineural hearing loss, bilateral; H69.91 Unspecified Eustachian tube disorder, right ear
CPT/HCPCS: V5266